=== PATIENT | female | born 1940 | race African-American/Black ===

== ENCOUNTER 2017-08-21 08:33 | Emergency (ER) | payer MEDICARE ==
--- NOTE | 2017-08-21 08:53 | PHYS DOC ---
Adult General Chief Complaint Chief Complaint: HYPOTENSION HPI HPI Patient is a 76 year old FEMALE who presents with weakness that is resolved. Patient was standing cooking when she felt weak and had to sit down. When EMS arrived her blood pressure was low. They gave her 100 mils normal saline bolus and her blood pressure improved. Patient states this happens when she stands too long. She feels back to her baseline at this time. No recent illness, no nausea or vomiting. She has had a recent fall due to arthritis and had rib fractures that patient reports is improving. No chest pain or shortness of breath, no belly pain, no nausea or vomiting. Primary care physician is Dr. Tyra Castro Review of Systems Review of Systems Constitutional: Denies fever or chills [] Eyes: Denies change in visual acuity, redness, or eye pain [] HENT: Denies nasal congestion or sore throat [] Respiratory: Denies cough or shortness of breath [] Cardiovascular: denies chest pain GI: Denies abdominal pain, nausea, vomiting, bloody stools or diarrhea [] : Denies dysuria or hematuria [] Musculoskeletal: Denies back pain or joint pain [] Integument: Denies rash or skin lesions [] Neurologic: Denies headache, focal weakness or sensory changes [] Current Medications Current Medications Current Medications Medications (Trade) Dose Ordered Sig/Beth Start Time Stop Time Status Last Admin Dose Admin Sodium Chloride 500 ml @ 500 mls/hr 1X ONCE 08/21/17 09:00 08/21/17 09:59 DC 08/21/17 08:58 500 MLS/HR Allergies Allergies Allergies Coded Allergies Type Severity Reaction Last Updated Verified No Known Drug Allergies 08/21/17 No Physical Exam Physical Exam Constitutional: Well developed, well nourished, no acute distress, non-toxic appearance. [] HENT: Normocephalic, atraumatic, bilateral external ears normal, oropharynx moist, no oral exudates, nose normal. [] Eyes: PERRLA, EOMI, conjunctiva normal, no discharge. [] Neck: Normal range of motion, no tenderness, supple, no stridor. [] Cardiovascular:Heart rate regular with regular rhythm, no murmur [] Lungs & Thorax: Bilateral breath sounds clear to auscultation, no wheeze or crackles Abdomen: Bowel sounds normal, soft, no tenderness, no masses, no pulsatile masses. [] Skin: Warm, dry, no erythema, no rash. [] Back: No tenderness, no CVA tenderness. [] Extremities: No tenderness, no cyanosis, no clubbing, ROM intact, no edema. [] Neurologic: Alert and oriented X 3, normal motor function, normal sensory function, no focal deficits noted. CN II-XII intact Psychologic: Affect normal, judgement normal, mood normal. [] Current Patient Data Vital Signs Vital Signs Date Time Temp Pulse Resp B/P (MAP) Pulse Ox O2 Delivery O2 Flow Rate FiO2 08/21/17 12:11 88 145/70 (95) 98 Room Air 08/21/17 10:32 18 08/21/17 09:30 98.4 98.4 Lab Values Laboratory Tests Test 08/21/17 08:52 08/21/17 10:14 08/21/17 10:45 White Blood Count 6.4 x10^3/uL (4.0-11.0) Red Blood Count 3.57 x10^6/uL (3.50-5.40) Hemoglobin 10.7 g/dL (12.0-15.5) L Hematocrit 32.0 % (36.0-47.0) L Mean Corpuscular Volume 90 fL (79-100) Mean Corpuscular Hemoglobin 30 pg (25-35) Mean Corpuscular Hemoglobin Concent 33 g/dL (31-37) Red Cell Distribution Width 14.2 % (11.5-14.5) Platelet Count 424 x10^3/uL (140-400) H Neutrophils (%) (Auto) 44 % (31-73) Lymphocytes (%) (Auto) 44 % (24-48) Monocytes (%) (Auto) 9 % (0-9) Eosinophils (%) (Auto) 2 % (0-3) Basophils (%) (Auto) 1 % (0-3) Neutrophils # (Auto) 2.8 x10^3uL (1.8-7.7) Lymphocytes # (Auto) 2.8 x10^3/uL (1.0-4.8) Monocytes # (Auto) 0.6 x10^3/uL (0.0-1.1) Eosinophils # (Auto) 0.1 x10^3/uL (0.0-0.7) Basophils # (Auto) 0.1 x10^3/uL (0.0-0.2) Sodium Level 140 mmol/L (136-145) Potassium Level 3.4 mmol/L (3.5-5.1) L Chloride Level 104 mmol/L (98-107) Carbon Dioxide Level 18 mmol/L (21-32) L Anion Gap 18 (6-14) H Blood Urea Nitrogen 27 mg/dL (7-20) H Creatinine 2.7 mg/dL (0.6-1.0) H Estimated GFR (Cockcroft-Gault) 17.2 BUN/Creatinine Ratio 10 (6-20) Glucose Level 82 mg/dL (70-99) Calcium Level 9.1 mg/dL (8.5-10.1) Total Bilirubin 0.2 mg/dL (0.2-1.0) Aspartate Amino Transferase (AST) 16 U/L (15-37) Alanine Aminotransferase (ALT) 12 U/L (14-59) L Alkaline Phosphatase 143 U/L (46-116) H Total Protein 7.8 g/dL (6.4-8.2) Albumin 3.4 g/dL (3.4-5.0) Albumin/Globulin Ratio 0.8 (1.0-1.7) L POC Troponin I 0.00 ng/ml (<0.08) Urine Collection Type Unknown Urine Color Yellow Urine Clarity Clear Urine pH 5.5 Urine Specific [place] <=1.005 Urine Protein Negative mg/dL (NEG-TRACE) Urine Glucose (UA) Negative mg/dL (NEG) Urine Ketones (Stick) Negative mg/dL (NEG) Urine Blood Small (NEG) Urine Nitrite Negative (NEG) Urine Bilirubin Negative (NEG) Urine Urobilinogen Dipstick 0.2 mg/dL (0.2 mg/dL) Urine Leukocyte Esterase Negative (NEG) Urine RBC 1-2 /HPF (0-2) Urine WBC 1-4 /HPF (0-4) Urine Squamous Epithelial Cells Few /LPF Urine Bacteria Few /HPF (0-FEW) Urine Mucus Slight /LPF Laboratory Tests 08/21/17 08:52 Laboratory Tests 08/21/17 08:52 EKG EKG 95 bpm, sinus, leftward axis, normal intervals, no ST elevation or depression appreciated, nonischemic T waves, interpreted by me[] Radiology/Procedures Radiology/Procedures [] Course & Med Decision Making Course & Med Decision Making Pertinent Labs and Imaging studies reviewed. (See chart for details) Ordered basic labs, orthostatics, 500 mils normal saline bolus given, EKG shows no acute abnormalities Orthostatics negative. Pt declined admission. I talked with FABRICATION AND ASSEMBLY SUPERVISOR in Dr. Bueno office, pt with known renal insufficiency, being managed by Dr. castro. They will follow with patient on Sunday, 08/27, counseled pt to check bp before resuming home bp meds, return precautions given , no further hypotension in ED. Dragon Disclaimer Dragon Disclaimer This electronic medical record was generated, in whole or in part, using a voice recognition dictation system. Departure Departure Impression: Primary Impression: Hypotension Additional Impression: Renal insufficiency Disposition: HOME, SELF-CARE Condition: STABLE Problem Qualifiers AYLEEN MELGOZA MD Aug 21, 2017 08:53
[2017-08-21] MEDS ORDERED: IV NORMAL SALINE 500ML BAG 500 ML IV ONE (09:00)
[2017-08-21 09:07] LABS: BASO # 0.1 x10^3/uL (0.0-0.2); BASO % 1 % (0-3); EOS % 2 % (0-3); HEMOGLOBIN 10.7 g/dL (12.0-15.5); LYMPH # 2.8 x10^3/uL (1.0-4.8); LYMPH % 44 % (24-48); MEAN CORPUSCULAR HEMOGLOBIN 30 pg (25-35); MEAN CORPUSCULAR HGB CONC 33 g/dL (31-37); MEAN CORPUSCULAR VOLUME 90 fL (79-100); MONO % 9 % (0-9); NEUT % 44 % (31-73); PLATELET COUNT 424 x10^3/uL (140-400); RED BLOOD COUNT 3.57 x10^6/uL (3.50-5.40); RED CELL DISTRIBUTION WIDTH 14.2 % (11.5-14.5); WHITE BLOOD COUNT 6.4 x10^3/uL (4.0-11.0)
[2017-08-21 09:18] LABS: CALCIUM 9.1 mg/dL (8.5-10.1); CREATININE 2.7 mg/dL (0.6-1.0); GFR 17.2; POTASSIUM 3.4 mmol/L (3.5-5.1)
[2017-08-21 09:23] LABS: ALBUMIN 3.4 g/dL (3.4-5.0); ALBUMIN/GLOBULIN RATIO 0.8 (1.0-1.7); TOTAL BILIRUBIN 0.2 mg/dL (0.2-1.0); TOTAL PROTEIN 7.8 g/dL (6.4-8.2)
--- NOTE | 2017-08-21 09:38 | EKG ---
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
[2017-08-21 11:12] LABS: BILIRUBIN,URINE NEGATIVE (NEG); GLUCOSE,URINE NEGATIVE (NEG); NITRITE,URINE NEGATIVE (NEG); PH,URINE 5.5; PROTEIN,URINE NEGATIVE (NEG-TRACE); UROBILINOGEN,URINE 0.2 mg/dL (0.2 mg/dL)
[2017-08-21 11:31] LABS: BACTERIA,URINE FEW /HPF (0-FEW); SQUAMOUS EPITHELIAL CELL,UR FEW /LPF
[2017-08-21 12:11] VITALS: BP 145/70
== END 2017-08-21 12:12 | disposition home or self-care (01) ==
LOC: ER 08:33
DX: I95.9 Hypotension, unspecified (principal); N28.9 Disorder of kidney and ureter, unspecified
CPT/HCPCS: 36415; 80053; 81001; 84484; 85025; 93005; 96360; 99285; J7040

== ENCOUNTER → 2019-09-22 | Day surgery (SDC) | payer OTHER ==
[~2019-09-22] MED LIST: CYCL1DRO OP; DORZ10DR7 OP; FLUT12AE IH; GEMF600T8 PO; IV RINGERS,LACTATED 1000ML 1,000 ML IV SCH; LEVO50TA PO; LIDOCAINE 2% PF 5 ML VIAL. ONE; LORA10TA3 PO; METO25TA2 PO; NIFE90TA PO; POTA10TA12 PO; PRED15SO7 PO; PROPOFOL 20 ML IV ONE; SPIR25TA5 PO; VENTOLIN HFA18 GM INH
--- NOTE | 2019-09-22 13:25 | PDOC4 ---
PROCEDURE Procedure EGD/dilate Indication: dysphagia Meds: per anesthesia Findings: E--~grade A esophagitis at 37cm. G--Small HH D--Normal to second portion. --Dilated with 48F Kelly w/o resistance. Jack. well. IMP: GERD, mild. REC: PPI daily. F/u in 2 weeks. Resume other home meds, diet as before. MELVI HNA MD Sep 22, 2019 13:25
[2019-09-22 13:58] VITALS: BP 136/65
== END ==
LOC: ENDOS 12:27
PROVIDERS: ATTEND Internal Medicine Gastroenterology
DX: R10.13 Epigastric pain (principal); K21.0 Gastro-esophageal reflux disease with esophagitis; K44.9 Diaphragmatic hernia without obstruction or gangrene; I10 Essential (primary) hypertension; E78.5 Hyperlipidemia, unspecified; E03.9 Hypothyroidism, unspecified; D64.9 Anemia, unspecified; J44.9 Chronic obstructive pulmonary disease, unspecified; Z86.010 Personal history of colon polyps; Z88.8 Allergy status to other drugs, medicaments and biological substances; Z90.49 Acquired absence of other specified parts of digestive tract
CPT/HCPCS: 43235; 43450; J2001; J2704

== ENCOUNTER → 2019-11-17 | Day surgery (SDC) | payer MEDICARE ==
[~2019-11-17] MED LIST changes: +FLUT9.9S NS; -LIDOCAINE 2% PF 5 ML VIAL. ONE; +PRED15SO48 PO; -PRED15SO7 PO; -PROPOFOL 20 ML IV ONE; +PROPOFOL 40 ML IV ONE
--- NOTE | 2019-11-17 14:03 | PDOC4 ---
PROCEDURE Procedure Colonoscopy with biopsies Indication: h/o polyps. Last 2011. Meds: per anesthesia Findings: TD normal. --Scope advanced to cecum. Mucosa normal. Post-extended left hemicolectomy with end-to-side anastomosis in sigmoid. Multiple diverticula from ascending to anastomosis. --3mm polyp, ascending, biopsied off. --4mm polyp sudeep-descending, biopsied off. Small internal hemorrhoids on retroflex. Jack. well. IMP: polyps diverticulosis S/p partial colectomy. REC: Resume home meds and diet. Await path. F/u with me in 2 weeks. MELVI HAN MD Nov 17, 2019 14:03
[2019-11-17 14:30] VITALS: BP 152/72
== END | disposition home or self-care (01) ==
LOC: ENDOS 11:30
PROVIDERS: ATTEND Internal Medicine Gastroenterology
DX: Z12.11 Encounter for screening for malignant neoplasm of colon (principal); K63.5 Polyp of colon; K63.89 Other specified diseases of intestine; K64.0 First degree hemorrhoids; K57.30 Diverticulosis of large intestine without perforation or abscess without bleeding; I10 Essential (primary) hypertension; E66.9 Obesity, unspecified; J44.9 Chronic obstructive pulmonary disease, unspecified; K21.9 Gastro-esophageal reflux disease without esophagitis; F17.210 Nicotine dependence, cigarettes, uncomplicated; E78.5 Hyperlipidemia, unspecified; D64.9 Anemia, unspecified; Z98.890 Other specified postprocedural states; Z68.37 Body mass index [BMI] 37.0-37.9, adult; Z98.0 Intestinal bypass and anastomosis status; Z86.010 Personal history of colon polyps; Z79.899 Other long term (current) drug therapy; Z88.8 Allergy status to other drugs, medicaments and biological substances; Z86.69 Personal history of other diseases of the nervous system and sense organs
CPT/HCPCS: 45380; 88305; C1757; J2704

== ENCOUNTER → 2020-04-05 | Outpatient (CLI) | payer MEDICARE ==
[2019-11-17 14:30] VITALS: BP 152/72
[~2020-04-05] MED LIST changes: +BARIUM SULFATE 340 GM SUSPENSION. PO ONE; +BARIUM SULFATE 60% 355 ML SUSP PO ONE; +BARIUM SULFATE 700 MG TABLET PO ONE; -IV RINGERS,LACTATED 1000ML 1,000 ML IV SCH; -PROPOFOL 40 ML IV ONE
--- NOTE | 2020-04-05 15:28 | RAD ---
Esophagogram: INDICATION: Difficulty swallowing. Patient reports she coughs when she eats. TECHNIQUE: Multi planar projection imaging of the cervical and thoracic esophagus was performed using a total of 2.9 minutes of fluoroscopy time and 31 image series acquired for procedural documentation. Images were acquired in the upright bilateral posterior oblique, true lateral and AP projections in addition to supine projection. Thick barium, thin barium and barium tablets were utilized. FINDINGS: The cervical portion of the esophagogram shows no laryngeal penetration or tracheal aspiration with mild pooling of thick barium in the vallecula and right piriform sinus. There are disc osteophytes at the C4-C5 and C5-C6 disc levels that result in prominence of the prevertebral soft tissues, resulting in a small cricopharyngeal bar. No esophageal diverticulum. The thoracic portion of esophagogram shows a few nonpropulsive contractions with to and fro motion of contrast material intermittently observed, as well as a small hiatal hernia. In the supine position, the thoracic esophagus is patulous without stricture distally. The barium tablet initially lodged at the cervical thoracic junction but with additional swallows assisted with thin liquids, passed into the stomach after brief pause near the gastroesophageal junction. No gastroesophageal reflux was elicited on this examination. IMPRESSION: 1. No laryngeal penetration or tracheal aspiration observed with thin liquids or thick liquids. 2. Small incipient cricopharyngeal bar and small hiatal hernia. 3. Findings of presbyesophagus. Electronically signed by: Ozzy Rachel MD (04/05/2020 3:25 PM) [id number]
== END | disposition home or self-care (01) ==
LOC: RAD 09:00
PROVIDERS: ATTEND Specialist
DX: K44.9 Diaphragmatic hernia without obstruction or gangrene (principal); K22.8 Other specified diseases of esophagus; E07.9 Disorder of thyroid, unspecified; M25.78 Osteophyte, vertebrae
CPT/HCPCS: 74220

== ENCOUNTER → 2020-04-08 | Outpatient (CLI) | payer MEDICARE ==
[2019-11-17 14:30] VITALS: BP 152/72
[~2020-04-08] MED LIST changes: -BARIUM SULFATE 340 GM SUSPENSION. PO ONE; -BARIUM SULFATE 60% 355 ML SUSP PO ONE; -BARIUM SULFATE 700 MG TABLET PO ONE
--- NOTE | 2020-04-08 14:31 | RAD ---
EXAM: ULTRASOUND-GUIDED THYROID FINE-NEEDLE ASPIRATION. HISTORY: Left thyroid nodule. Ultrasound-guided biopsy is requested. FINDINGS: The procedure along with its risks and benefits were explained to the patient. She agreed to proceed. A timeout procedure was performed. Sonographic images of the thyroid gland were obtained. The solid portion of the cystic and solid target nodule in the left lobe was adequately visualized for biopsy. The overlying skin was sterilely prepped and infiltrated with 1% lidocaine for local anesthesia. Under ultrasound guidance, 4 aspirates were obtained using 25-gauge needles. These were hand delivered to pathology who determined them adequate for diagnosis. A sterile dressing was placed. There were no immediate complications. IMPRESSION: 1. Successful ultrasound-guided fine-needle aspiration of the left thyroid nodule. Electronically signed by: Marco Rogel MD (04/08/2020 2:28 PM) [id number]
--- NOTE | 2020-04-09 17:15 | PATHOLOGY ---
Note [facility] Accession Number: [id number] TESTS RESULT FLAG UNITS REF RANGE LAB Clinician Provided Cytology Information No. of containers..01 Other (Miscellaneous) Source: LEFT THYROID NODULE DIAGNOSIS: LEFT THYROID NODULE INCONCLUSIVE. BETHESDA CATEGORY III. FOLLICULAR LESION OF UNDETERMINED SIGNIFICANCE. SPECIMEN CONSISTS OF ABUNDANT FOLLICULAR CELLS WITH SCANT COLLOID. THE DIFFERENTIAL DIAGNOSIS INCLUDES CELLULAR ADENOMATOID NODULE AND FOLLICULAR NEOPLASM. COMMENT, MODERATELY CELLULAR ASPIRATE WITH BOTH MACRO AND MICROFOLLICLES WITH HURTHLE CELL CHANGES WITH MILD ATYPIA. THE RETAIN VIAL WILL BE SENT FOR MOLECULAR TESTING AND AN ADDITIONAL REPORT WILL FOLLOW. Pathologist ICD10: 02 R89.6 Signed out by: Brenden Harrison MD, Pathologist NPI- [id number] Performed by: Lisa Lincoln, Prototype Deicer Assembler ([facility]) Gross description: 01 30ML, PINK, 2F 2AD 2HE /LCS 04/08/2020 1810 Local FLAG LEGEND: L-Low Normal,H-High Normal,LL-Alert Low,HH-Alert High <-Panic Low,>-Panic High,A-Abnormal,AA-Critical Abnormal Performed at: [employer] [facility] [address] [place] [address] Nikhil Young MD, POOJA [facility] [address] [address] Gregor Huitron MD, Specimen Comment: A courtesy copy of this report has been sent to [phone] Specimen Comment: Report sent to Performed at: [address], [place], [place] [id number] MD Nikhil Young MD Phone: [phone]
== END | disposition home or self-care (01) ==
LOC: US 12:43
PROVIDERS: ATTEND Specialist
DX: E04.1 Nontoxic single thyroid nodule (principal); R13.10 Dysphagia, unspecified
CPT/HCPCS: 76942; 88173; 88305

== ENCOUNTER 2021-03-03 19:43 | Emergency (ER) | payer MEDICARE ==
[~2021-03-03] VITALS: Ht 175.3 cm; Wt 83.1 kg
[~2021-03-03 19:43] MED LIST changes: +GEMF600T20 PO; -GEMF600T8 PO
[2021-03-03 20:18] LABS: BASO % 1 % (0-3); EOS # 0.1 x10^3/uL (0.0-0.7); EOS % 2 % (0-3); HEMATOCRIT 31.7 % (36.0-47.0); HEMOGLOBIN 11.1 g/dL (12.0-15.5); LYMPH # 1.7 x10^3/uL (1.0-4.8); LYMPH % 26 % (24-48); MEAN CORPUSCULAR HEMOGLOBIN 31 pg (25-35); MEAN CORPUSCULAR HGB CONC 35 g/dL (31-37); MEAN CORPUSCULAR VOLUME 90 fL (79-100); MONO # 0.6 x10^3/uL (0.0-1.1); MONO % 9 % (0-9); NEUT % 62 % (31-73); PLATELET COUNT 369 x10^3/uL (140-400); RED BLOOD COUNT 3.54 x10^6/uL (3.50-5.40); RED CELL DISTRIBUTION WIDTH 14.4 % (11.5-14.5); WHITE BLOOD COUNT 6.4 x10^3/uL (4.0-11.0)
[2021-03-03] MEDS ORDERED: IV NORMAL SALINE 1000ML BAG 1,000 ML IV ONE (20:30)
--- NOTE | 2021-03-03 21:15 | RAD ---
CT HEAD INDICATION: Reason: syncope / Spl. Instructions: / History: COMPARISON: None Available. Exposure: One or more of the following individualized dose reduction techniques were utilized for thi s examination: 1. Automated exposure control 2. Adjustment of the mA and/or kV according to patient size 3. Use of iterative reconstruction technique TECHNIQUE: 5 mm contiguous axial images were obtained from the skull base to the vertex in both bone and soft tissue algorithm. FINDINGS: No abnormal attenuation within the brain parenchyma. No evidence of acute intracranial hemorrhage. No extra-axial fluid collections. No mass effect or midline shift. Ventricular size is appropriate. Basal cisterns are patent. No fractures identified.Viveros-white differentiation is preserved.Globes and orbits are within normal l imits. Paranasal sinuses and mastoid air cells are clear. IMPRESSION: No acute intracranial findings. Electronically signed by: Quan Hameed MD (03/03/2021 9:12 PM) [id number]
[2021-03-03 21:23] LABS: CALCIUM 10.5 mg/dL (8.5-10.1); CREATININE 1.8 mg/dL (0.6-1.0); GFR 32.8; POTASSIUM 4.3 mmol/L (3.5-5.1)
[2021-03-03 21:25] LABS: ALBUMIN 3.8 g/dL (3.4-5.0); ALBUMIN/GLOBULIN RATIO 0.8 (1.0-1.7); MAGNESIUM 2.2 mg/dL (1.8-2.4); TOTAL BILIRUBIN 0.4 mg/dL (0.2-1.0); TOTAL PROTEIN 8.4 g/dL (6.4-8.2)
[2021-03-03 22:44] LABS: BILIRUBIN,URINE NEGATIVE (NEG); CLARITY,URINE CLEAR; COLOR,URINE YELLOW; NITRITE,URINE NEGATIVE (NEG); PROTEIN,URINE NEGATIVE (NEG-TRACE); UROBILINOGEN,URINE 0.2 mg/dL (0.2 mg/dL)
--- NOTE | 2021-03-03 22:44 | PHYS DOC ---
Past Medical History Past Medical History: Arrhythmia, High Cholesterol, Hypothyroid, Renal Disease, Other Additional Past Medical Histor: SEASON ALLERGIES, HPYLORI (EMANI PLASENCIA JOB SPECIFICATION WRITER) Past Surgical History: Cholecystectomy Additional Past Surgical Histo: COLON RESECTION (EMANI PLASENCIA JOB SPECIFICATION WRITER) Smoking Status: Current Every Day Smoker Additional Information: SMOKES 2 CIGARETTES A DAY Alcohol Use: None Drug Use: None (EMANI PLASENCIA JOB SPECIFICATION WRITER) General Adult EDM: Chief Complaint: SYNCOPE HPI: HPI: Patient is a 80 year old female with a history of arrhythmias, hypertension, kidney disease, who presents today to be evaluated for syncope episode. Patient states she was attending an outdoor graduation for the grandson, she states it was very hot, she states she passed out twice. Patient states the heat made her pass out. She states she feels better in the ED. Denies any headache, neck matthew n, chest pain, shortness of breath, nausea or vomiting. (EMANI PLASENCIA JOB SPECIFICATION WRITER) Review of Systems: Review of Systems: Constitutional: Denies fever or chills. [] Eyes: Denies change in visual acuity. [] HENT: Denies nasal congestion or sore throat. [] Respiratory: Denies cough or shortness of breath. [] Cardiovascular: Denies chest pain or edema. [] GI: Denies abdominal pain, nausea, vomiting, bloody stools or diarrhea. [] : Denies dysuria. [] Musculoskeletal: Denies back pain or joint pain. [] Integument: Denies rash. [] Neurologic: Reports syncope episode. Denies headache, focal weakness or sensory changes. [] Psychiatric: Denies depression or anxiety. [] (EMANI PLASENCIA JOB SPECIFICATION WRITER) Heart Score: C/O Chest Pain: N/A Risk Factors: Risk Factors: DM, Current or recent (<one month) smoker, HTN, HLP, family history of CAD, obesity. Risk Scores: Score 0 - 3: 2.5% MACE over next 6 weeks - Discharge Home Score 4 - 6: 20.3% MACE over next 6 weeks - Admit for Clinical Observation Score 7 - 10: 72.7% MACE over next 6 weeks - Early Invasive Strategies (EMANI PLASENCIA JOB SPECIFICATION WRITER) Current Medications: Current Medications Medications (Trade) Dose Ordered Sig/Beth Start Time Stop Time Status Last Admin Dose Admin Sodium Chloride 1,000 ml @ 1,000 mls/hr 1X ONCE 03/03/21 20:30 03/03/21 21:29 DC 03/03/21 20:38 1,000 MLS/HR (EMANI PLASENCIA JOB SPECIFICATION WRITER) Allergies: Allergies: Allergies Coded Allergies Type Severity Reaction Last Updated Verified amlodipine Allergy Intermediate swollen mouth 11/17/19 Yes esomeprazole Allergy Intermediate abd pain 11/17/19 Yes (EMANI PLASENCIA JOB SPECIFICATION WRITER) Physical Exam: PE: Constitutional: Well developed, well nourished, no acute distress, non-toxic appearance. [] HENT: Normocephalic, atraumatic, bilateral external ears normal, oropharynx moist, no oral exudates, nose normal. [] Eyes: PERRLA, EOMI, to the right eye, conjunctiva normal, no discharge. blind in the left eye Neck: Normal range of motion, no tenderness, supple, no stridor. [] Cardiovascular:Heart rate regular rhythm, no murmur [] Lungs & Thorax: Bilateral breath sounds clear to auscultation [] Abdomen: Bowel sounds normal, soft, no tenderness, no masses, no pulsatile masses. [] Skin: Warm, dry, no erythema, no rash. [] Back: No tenderness, no CVA tenderness. [] Extremities: No tenderness, no cyanosis, no clubbing, ROM intact, no edema. [] Neurologic: Alert and oriented X 3, normal motor function, normal sensory function, no focal deficits noted. Cranial nerves II through XII intact Psychologic: Affect normal, judgement normal, mood normal. [] (EMANI PLASENCIA Venessa JOB SPECIFICATION WRITER) Current Patient Data: Labs: Laboratory Tests Test 03/03/21 19:54 03/03/21 20:11 03/03/21 20:54 Glucose (Fingerstick) 118 mg/dL (70-99) H White Blood Count 6.4 x10^3/uL (4.0-11.0) Red Blood Count 3.54 x10^6/uL (3.50-5.40) Hemoglobin 11.1 g/dL (12.0-15.5) L Hematocrit 31.7 % (36.0-47.0) L Mean Corpuscular Volume 90 fL (79-100) Mean Corpuscular Hemoglobin 31 pg (25-35) Mean Corpuscular Hemoglobin Concent 35 g/dL (31-37) Red Cell Distribution Width 14.4 % (11.5-14.5) Platelet Count 369 x10^3/uL (140-400) Neutrophils (%) (Auto) 62 % (31-73) Lymphocytes (%) (Auto) 26 % (24-48) Monocytes (%) (Auto) 9 % (0-9) Eosinophils (%) (Auto) 2 % (0-3) Basophils (%) (Auto) 1 % (0-3) Neutrophils # (Auto) 4.0 x10^3/uL (1.8-7.7) Lymphocytes # (Auto) 1.7 x10^3/uL (1.0-4.8) Monocytes # (Auto) 0.6 x10^3/uL (0.0-1.1) Eosinophils # (Auto) 0.1 x10^3/uL (0.0-0.7) Basophils # (Auto) 0.0 x10^3/uL (0.0-0.2) Sodium Level 142 mmol/L (136-145) Potassium Level 4.3 mmol/L (3.5-5.1) Chloride Level 107 mmol/L (98-107) Carbon Dioxide Level 25 mmol/L (21-32) Anion Gap 10 (6-14) Blood Urea Nitrogen 36 mg/dL (7-20) H Creatinine 1.8 mg/dL (0.6-1.0) H Estimated GFR (Cockcroft-Gault) 32.8 BUN/Creatinine Ratio 20 (6-20) Glucose Level 112 mg/dL (70-99) H Calcium Level 10.5 mg/dL (8.5-10.1) H Magnesium Level 2.2 mg/dL (1.8-2.4) Total Bilirubin 0.4 mg/dL (0.2-1.0) Aspartate Amino Transferase (AST) 12 U/L (15-37) L Alanine Aminotransferase (ALT) 14 U/L (14-59) Alkaline Phosphatase 166 U/L (46-116) H Troponin I Quantitative < 0.017 ng/mL (0.000-0.055) Total Protein 8.4 g/dL (6.4-8.2) H Albumin 3.8 g/dL (3.4-5.0) Albumin/Globulin Ratio 0.8 (1.0-1.7) L Thyroid Stimulating Hormone (TSH) 3.152 uIU/mL (0.358-3.74) Laboratory Tests 03/03/21 20:11 Laboratory Tests 03/03/21 20:54 Vital Signs: Vital Signs Date Time Temp Pulse Resp B/P (MAP) Pulse Ox O2 Delivery O2 Flow Rate FiO2 03/03/21 20:17 76 142/68 (92) 98 Room Air 03/03/21 19:43 98.8 17 98.8 (EMANI PLASENCIA JOB SPECIFICATION WRITER) EKG: EK interpreted by Dr. Estrada sinus rhythm heart rate 78 no STEMI [] (EMANI PLASENCIA APRN) Radiology/Procedures: Radiology/Procedures: []PROCEDURE: CT HEAD WO CONTRAST CT HEAD INDICATION: Reason: syncope / Spl. Instructions: / History: COMPARISON: None Available. Exposure: One or more of the following individualized dose reduction techniques were utilized for this examination: 1. Automated exposure control 2. Adjust ment of the mA and/or kV according to patient size 3. Use of iterative reconstruction technique TECHNIQUE: 5 mm contiguous axial images were obtained from the skull base to the vertex in both bone and soft tissue algorithm. FINDINGS: No abnormal attenuation within the brain parenchyma. No evidence of acute intracranial hemorrhage. No extra-axial fluid collections. No mass effect or midline shift. Ventricular size is appropriate. Basal cisterns are patent. No fractures identified.Viveros-white differentiation is preserved.Globes and orbits are within normal limits. Paranasal sinuses and mastoid air cells are clear. IMPRESSION: No acute intracranial findings. Electronically signed by: Quan Hameed MD (03/03/2021 9:12 PM) [id number] DICTATED and SIGNED BY: QUAN HAMEED MD DATE: 03/03/21 [id number] (EMANI PLASENCIA JOB SPECIFICATION WRITER) Course & Med Decision Making: Course & Med Decision Making Pertinent Labs and Imaging studies reviewed. (See chart for details) This is a 80-year-old female patient presenting to the ED today to be evaluated for 2 syncope episodes during her graduation ceremony. Patient stated this was an outdoor event, it is very hot that she passed out. Patient states she feels better in the ED... CT of the head is negative. Chest x-ray is negative, CBC with a hemoglobin of 11.1 and hematocrit of 31.7, creatinine 1.8 with BUN of 3.6, patient has history of kidney disease and this is around her baseline. EKG is negative, she was given IV fluids, feeling better. She is requesting to be discharged home. Provided return precautions. Follow-up with PCP (EMANI PLASENCIA APRN) Phuong Disclaimer: Dragelaine Disclaimer: This electronic medical record was generated, in whole or in part, using a voice recognition dictation system. (EMANI PLASENCIA APRN) Departure Departure Impression: Primary Impression: Heat exhaustion Qualified Codes: T67.5XXA - Heat exhaustion, unspecified, initial encounter Additional Impressions: Syncope Qualified Codes: R55 - Syncope and collapse Chronic kidney disease Qualified Codes: N18.9 - Chronic kidney disease, unspecified Disposition: 01 HOME / SELF CARE / HOMELESS Condition: STABLE Referrals: CARA SARABIA MD (PCP) Follow-up in 1 to 2 weeks Patient Instructions: Heat Disorders-Brief, Syncope Additional Instructions: You were evaluated in the emergency room. Avoid being out in the heat in the next 24 hours. Try to hydrate yourself. Follow-up with your primary care doctor next week, come back to the ED at any point symptoms worsen Attending Signature Attending Signature I have reviewed the PA/EPIDEMIOLOGIST's note and plan of care. I was available for consu ltation as needed during the patient's visit in the emergency department. I agree with the clinical impression, plan, and disposition. (MELVI ESTRADA DO) EMANI PLASENCIA APRN Mar 03, 2021 22:44 MELVI ESTRADA DO Mar 03, 2021 23:44
[2021-03-03 22:49] LABS: BACTERIA,URINE FEW /HPF (0-FEW); RBC,URINE 0 /HPF (0-2); WBC,URINE RARE /HPF (0-4)
--- NOTE | 2021-03-03 22:56 | RAD ---
EXAM: CHEST 1 VIEW History: Syncope COMPARISON: None available. TECHNIQUE: Single portable radiograph of the chest FINDINGS: The cardiac silhouette is unremarkable. The lungs are clear bilaterally. The costophrenic sulci are clear and well demarcated. IMPRESSION: No radiographic evidence of an acute cardiopulmonary process. Electronically signed by: Quan Hameed MD (03/03/2021 10:54 PM) [id number]
[2021-03-03 22:59] VITALS: BP 152/75
== END 2021-03-03 22:59 | disposition home or self-care (01) ==
LOC: ER 19:43
DX: T67.5XXA Heat exhaustion, unspecified, initial encounter (principal); R55 Syncope and collapse; I12.9 Hypertensive chronic kidney disease with stage 1 through stage 4 chronic kidney disease, or unspecified chronic kidney disease; N18.9 Chronic kidney disease, unspecified; E78.00 Pure hypercholesterolemia, unspecified; E03.9 Hypothyroidism, unspecified; F17.210 Nicotine dependence, cigarettes, uncomplicated; Z90.49 Acquired absence of other specified parts of digestive tract; Z88.1 Allergy status to other antibiotic agents; Z88.8 Allergy status to other drugs, medicaments and biological substances; X30.XXXA Exposure to excessive natural heat, initial encounter; Y93.89 Activity, other specified; Y92.89 Other specified places as the place of occurrence of the external cause; Y99.8 Other external cause status
CPT/HCPCS: 36415; 70450; 71045; 80053; 81001; 82962; 83735; 84443; 84484; 85025; 96360; 99285; J7030

== ENCOUNTER 2021-09-16 10:44 | Inpatient (IN) | payer MEDICARE ==
[~2021-09-16] VITALS: Ht 170.2 cm; Wt 74.0 kg
--- NOTE | 2021-09-16 11:15 | PHYS DOC ---
Past Medical History Past Medical History: Arrhythmia, High Cholesterol, Hypothyroid, Renal Disease, Other Additional Past Medical Histor: SEASON ALLERGIES, HPYLORI Past Surgical History: Cholecystectomy Additional Past Surgical Histo: COLON RESECTION Smoking Status: Current Every Day Smoker Alcohol Use: None Drug Use: None General Adult EDM: Chief Complaint: WEAKNESS/GENERALIZED HPI: HPI: Patient is a 80 year old female who presents with at least 3 weeks of generalized weakness and fatigue. She fell yesterday, describes a mechanical trip and fall, when she fell backwards onto her buttocks. She denies head injury or other premonitory symptoms. She denies any acute changes today. She reports that her sister came over to see her and insisted that she seek medical care and come to the ER today. She denies focal weakness, numbness or tingling. She denies chest pain or dyspnea. She denies palpitations. She denies headache, dizziness, vertigo. She has chronically poor vision secondary to cataracts, no acute changes reported recently. She denies urinary symptoms. She denies constipation or diarrhea. She does not have much of an appetite, but she reports that she has been drinking fluids. She denies subjective urinary symptoms. She denies head injury. She denies loss of consciousness. She denies neck pain or back pain, denies headache. She has not contacted her PCP to discuss this issue. She reports that she has had greater than 2-year history of cough and subjective sensation of foreign body in her throat. She has seen core shaper top and ENTs, all as outpatient, per the patient and her sister's report. Review of Systems: Review of Systems: Constitutional: Denies fever or chills. [] Eyes: Denies change in visual acuity. [] HENT: Denies nasal congestion or sore throat. [] Respiratory: She does report occasional dyspnea with exertion, no dyspnea at rest. She reports a chronic cough, unchanged. Denies hemoptysis Cardiovascular: Denies chest pain or edema. Denies syncope. GI: Denies abdominal pain, nausea, vomiting, diarrhea or constipation. : Denies urinary symptoms. Musculoskeletal: Denies back pain or joint pain. [] Integument: Denies rash. [] Neurologic: Denies headache, focal weakness or sensory changes. He denies dizziness or vertigo. Psychiatric: Denies depression or anxiety. [] Heart Score: C/O Chest Pain: No Risk Factors: Risk Factors: DM, Current or recent (<one month) smoker, HTN, HLP, family history of CAD, obesity. Risk Scores: Score 0 - 3: 2.5% MACE over next 6 weeks - Discharge Home Score 4 - 6: 20.3% MACE over next 6 weeks - Admit for Clinical Observation Score 7 - 10: 72.7% MACE over next 6 weeks - Early Invasive Strategies Allergies: Allergies: Allergies Coded Allergies Type Severity Reaction Last Updated Verified amlodipine Allergy Intermediate swollen mouth 11/17/19 Yes esomeprazole Allergy Intermediate abd pain 11/17/19 Yes Physical Exam: PE: Constitutional: Well developed, well nourished, no acute distress, non-toxic appearance. [] HENT: Normocephalic, atraumatic, oropharynx is patent and clear, mucous membranes are moist. TMs clear bilaterally Eyes: PERRL, EOMI, no discharge. Sclera are clear and anicteric. Bilateral corneal opacities are noted, left greater than right. Neck: Normal range of motion, no tenderness, supple, no stridor. Achy midline, no JVD, no midline tenderness or step-offs Cardiovascular: Tachycardic, low 100s, regular, +2 dorsalis pedis and +2 radial pulses bilaterally. Lungs & Thorax: Bilateral breath sounds clear to auscultation [] Abdomen: Diminished soft, nondistended, nontender to palpation. Skin: Warm, dry, no erythema, no rash. No jaundice. No wounds. Back: No tenderness, no CVA tenderness. [] Extremities: No tenderness, no cyanosis, no clubbing, ROM intact, no edema. No calf tenderness. Neurologic: She is awake, alert, oriented x3. Cranial nerves II through XII grossly intact. Speech is clear and fluent. 5 out of 5 motor strength all 4 extremities. No dysmetria. No pronator drift. No limb ataxia. Psychologic: Affect normal, judgement normal, mood normal. [] EKG: EKG: EKG is interpreted at 1111 Rhythm is sinus tachycardia Rate is 108 bpm Grant is left No STEMI Radiology/Procedures: Radiology/Procedures: IMAGING REPORT Signed PATIENT: MARIA T GAUTAM ACCOUNT: [id number] : 1940 LOCATION: ER AGE: 80 SEX: F EXAM STATUS: PRE ER ORD. PHYSICIAN: GRICELDA KELLY DO REASON: weakness, fall PROCEDURE: CT HEAD WO CONTRAST CT HEAD/BRAIN WO History: Reason: weakness, fall / Spl. Instructions: / History: Comparison: March 03, 2021 Technique: Noncontrast CT imaging was performed of the head. Exposure: One or more of the following individualized dose reduction techniques were utilized for this examination: 1. Automated exposure control 2. Adjustment of the mA and/or kV according to patient size 3. Use of iterative reconstruction technique. Findings: No intracranial hemorrhage. No mass effect. No hydrocephalus. Mild brain parenchymal volume loss. Mild foci of decreased attenuation within the hemispheric white matter, most often due to chronic microvascular ischemia, unchanged. Imaged orbits are unremarkable. Minimal scattered paranasal sinus mucosal thickening. Mastoid air cells are clear. No acute calvarial fracture. Impression: 1. No acute intracranial abnormality. Electronically signed by: Matt Rodriguez DO (09/16/2021 12:02 PM) [id number] DICTATED and SIGNED BY: MATT RODRIGUEZ DO DATE: 09/16/21 [id number] IMAGING REPORT Signed PATIENT: MARIA T GAUTAM ACCOUNT: [id number] : 1940 LOCATION: ER AGE: 80 SEX: F EXAM STATUS: PRE ER ORD. PHYSICIAN: GRICELDA KELLY DO REASON: cough PROCEDURE: PORTABLE CHEST 1V XR CHEST 1V History: Reason: cough / Spl. Instructions: / History: Comparison: March 03, 2021 Findings: Mild multilevel ill-defined opacities bilaterally, right greater than left. No pleural effusion. No pneumothorax. Normal heart size. Impression: 1. Mild multifocal ill-defined opacities, can be seen with pneumonia including viral pneumonia. Electronically signed by: Matt Rodriguez DO (09/16/2021 12:07 PM) [id number] DICTATED and SIGNED BY: MATT RODRIGUEZ DO DATE: 09/16/21 [id number] IMAGING REPORT Signed PATIENT: MARIA T GAUTAM ACCOUNT: [id number] : 1940 LOCATION: ER AGE: 80 SEX: F EXAM STATUS: PRE ER ORD. PHYSICIAN: GRICELDA KELLY DO REASON: FALL YESTERDAY, LANDED ON BOTTOM PROCEDURE: SACRUM & COCCYX 3V XR SACRUM AND COCCYX 2+VIEWS History: Reason: FALL YESTERDAY, LANDED ON BOTTOM / Spl. Instructions: / History: . Pain Technique: 3 views coccyx and sacrum. Comparison: None. Findings: Normal alignment. No definite fracture. Symmetric bilateral sacroiliac joints. Lower lumbar spondylosis. Grade 1 anterolisthesis L5 on S1. Internal fixation right proximal femur. 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 Postop changes overlying the pelvis. Impression: 1. No acute osseous abnormality. Electronically signed by: Matt Rodriguez DO (09/16/2021 12:06 PM) [id number] DICTATED and SIGNED BY: MATT RODRIGUEZ DO DATE: 09/16/21 [id number] 0 Course & Med Decision Making: Course & Med Decision Making Pertinent Labs and Imaging studies reviewed. (See chart for details) Blood cultures are ordered. I did IV Rocephin and p.o. azithromycin for empiric treatment of commune acquired pneumonia. IV fluids are given. She manifests evidence of pneumonia as well as acute renal failure. I trended previous creatinines, and in 2017 she did have a creatinine up to 2.7, that her baseline is near to 1.0. I discussed all the findings, differential diagnosis and plan of care with the patient. I recommend admission to the hospital for IV antibiotics, fluids. She and her sister are both comfortable with this plan. I contacted Dr. Sarabia, who accepts her for admission. Phuong Disclaimer: Phuong Disclaimer: This electronic medical record was generated, in whole or in part, using a voice recognition dictation system. Departure Departure Impression: Primary Impression: Multifocal pneumonia Additional Impressions: Generalized weakness Acute renal failure Qualified Codes: N17.9 - Acute kidney failure, unspecified Dehydration Disposition: ADMITTED INPATIENT Admitting Physician: Lilia Sarabia Condition: STABLE Referrals: LILIA SARABIA MD (PCP) GRICELDA KELLY DO Sep 16, 2021 11:14
--- NOTE | 2021-09-16 12:05 | RAD ---
CT HEAD/BRAIN WO History: Reason: weakness, fall / Spl. Instructions: / History: Comparison: March 03, 2021 Technique: Noncontrast CT imaging was performed of the head. Exposure: One or more of the following individualized dose reduction techniques were utilized for thi s examination: 1. Automated exposure control 2. Adjustment of the mA and/or kV according to patient size 3. Use of iterative reconstruction technique. Findings: No intracranial hemorrhage. No mass effect. No hydrocephalus. Mild brain parenchymal volume loss. Mi ld foci of decreased attenuation within the hemispheric white matter, most often due to chronic micro vascular ischemia, unchanged. Imaged orbits are unremarkable. Minimal scattered paranasal sinus mucosal thickening. Mastoid air mahendra ls are clear. No acute calvarial fracture. Impression: 1. No acute intracranial abnormality. Electronically signed by: Matt Rodriguez DO (09/16/2021 12:02 PM) [id number]
--- NOTE | 2021-09-16 12:09 | RAD ---
XR CHEST 1V History: Reason: cough / Spl. Instructions: / History: Comparison: March 03, 2021 Findings: Mild multilevel ill-defined opacities bilaterally, right greater than left. No pleural effusion. No p neumothorax. Normal heart size. Impression: 1. Mild multifocal ill-defined opacities, can be seen with pneumonia including viral pneumonia. Electronically signed by: Matt Rodriguez DO (09/16/2021 12:07 PM) [id number]
--- NOTE | 2021-09-16 12:09 | RAD ---
XR SACRUM AND COCCYX 2+VIEWS History: Reason: FALL YESTERDAY, LANDED ON BOTTOM / Spl. Instructions: / History: . Pain Technique: 3 views coccyx and sacrum. Comparison: None. Findings: Normal alignment. No definite fracture. Symmetric bilateral sacroiliac joints. Lower lumbar spondylos is. Grade 1 anterolisthesis L5 on S1. Internal fixation right proximal femur. 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 Postop changes overlying the pelvis. Impression: 1. No acute osseous abnormality. Electronically signed by: Matt Rodriguez DO (09/16/2021 12:06 PM) [id number]
[2021-09-16] MEDS ORDERED: cefTRIAXone IV Push 1 GM VIAL. IVP ONE (12:30)
[2021-09-16] MEDS ORDERED: AZITHROMYCIN 250 MG TABLET. PO ONE (12:30)
[2021-09-16 12:35] LABS: BASO % 0 % (0-3); EOS % 0 % (0-3); HEMATOCRIT 31.5 % (36.0-47.0); HEMOGLOBIN 10.5 g/dL (12.0-15.5); LYMPH # 0.9 x10^3/uL (1.0-4.8); LYMPH % 11 % (24-48); MEAN CORPUSCULAR HEMOGLOBIN 30 pg (25-35); MEAN CORPUSCULAR HGB CONC 33 g/dL (31-37); MEAN CORPUSCULAR VOLUME 90 fL (79-100); MONO # 0.9 x10^3/uL (0.0-1.1); MONO % 11 % (0-9); NEUT # 6.5 x10^3/uL (1.8-7.7); NEUT % 77 % (31-73); PLATELET COUNT 517 x10^3/uL (140-400); RED CELL DISTRIBUTION WIDTH 14.4 % (11.5-14.5); WHITE BLOOD COUNT 8.4 x10^3/uL (4.0-11.0)
[2021-09-16 13:15] LABS: CALCIUM 9.9 mg/dL (8.5-10.1); GFR 18.2; POTASSIUM 4.1 mmol/L (3.5-5.1)
[2021-09-16 13:21] LABS: ALBUMIN/GLOBULIN RATIO 0.5 (1.0-1.7); MAGNESIUM 2.5 mg/dL (1.8-2.4); PHOSPHORUS 3.9 mg/dL (2.6-4.7); TOTAL BILIRUBIN 0.4 mg/dL (0.2-1.0); TOTAL PROTEIN 9.2 g/dL (6.4-8.2)
[2021-09-16] MEDS ORDERED: IV NORMAL SALINE 1000ML BAG 1,000 ML IV ONE ×2 (13:45→14:00)
[2021-09-16] MEDS ORDERED: ONDANSETRON PF 4 MG/2 ML VIAL. IVP PRN (14:00)
--- NOTE | 2021-09-16 16:35 | PDOC ---
Provider Note Date of Service: DATE: 09/16/21 TIME: 16:34 Provider Note Pt seen in ER.H&P dictated>#[id number]. Holding procardia due to renal failure and dehydration, resjme later Justifications for Admission Other Justification CARA SARABIA MD Sep 16, 2021 16:35
--- NOTE | 2021-09-16 17:26 | HP ---
DATE OF SERVICE: 09/16/2021 ADMIT DATE: 09/16/2021 PATIENT LOCATION: The patient is in Emergency Room. REASON FOR ADMISSION TO THE HOSPITAL: Weakness, acute kidney failure, possible pneumonia. HISTORY OF PRESENT ILLNESS: The patient is a 80-year-old female. She lives at home. She has history of glaucoma, hypothyroidism, hypertension and mild kidney disease, the creatinine is around 1.5. She was not feeling well for last 2-3 weeks as her cough got progressively worse and she has been weak and was brought into the hospital and her creatinine was 3, BUN 70. Chest x-ray shows infiltrate in the lungs. The patient was suspected could be a pneumonia. COVID test screen was negative. The patient had Joseph and Joseph 2 vaccinations including the booster last month. PAST SURGICAL HISTORY: Gallbladder surgery, colon surgeries. PERSONAL HISTORY: Smoker. Denies alcohol, drug abuse. FAMILY HISTORY: Hypertension. She has been weak, has been not eating much, has fallen and the patient was admitted to the hospital. ALLERGIES: THE PATIENT IS ALLERGIC TO AMLODIPINE AND ESOMEPRAZOLE. MEDICATIONS: At home, the patient is on eye drops, Restasis, 1 drop twice a day, both eyes; dorzolamide, glaucoma, 1 drop 2 times daily; prednisolone eye drops as needed; latanoprost eye drops as needed; metoprolol 25 mg daily; omeprazole 40 mg daily; Synthroid 50 mcg daily; spironolactone 25 mg daily; Procardia 90 mg daily; gemfibrozil 60 mg daily. REVIEW OF SYMPTOMS: Complains of cough, weakness, getting progressively weak for last 3 weeks. Denies any chills. Denies anybody close to her had COVID. Rest of the 14 systems were reviewed and negative. PHYSICAL EXAMINATION: GENERAL: The patient is an elderly female, not in any distress. VITAL SIGNS: Temperature 97, pulse 106, respirations 30, blood pressure 128/65 and 96 on room air. HEENT: Head is atraumatic. The patient has some glaucoma in the eyes. Oral cavity: No congestion. NECK: Supple. Thyroid not enlarged. JVD not elevated. CHEST: Symmetrical. CARDIOVASCULAR: S1, S2. LUNGS: Few crackles at the base. ABDOMEN: Soft. Scars of previous abdominal surgeries old. No mass palpable. EXTERNAL GENITALIA: No Hered[place]. RECTUM: Deferred. EXTREMITIES: No calf tenderness, no edema. NEUROLOGIC: Moving all extremities. No focal deficits noted. LABORATORY DATA: Shows a white count of 8, hemoglobin 10.5, platelets 517. Electrolytes show sodium 131, potassium 4.1, chloride 97, bicarb 18, anion gap 16, BUN 74, creatinine 3.0, glucose 119. Lactic acid 1, magnesium 2.5. LFTs normal. BNP 31. Rapid COVID test negative. DIAGNOSTIC DATA: The patient had a CT head negative. Chest x-ray shows mild multifocal, ill-defined opacities. X-ray of the sacrum and coccyx negative for any fractures. FINAL IMPRESSION: 1. Generalized weakness. 2. Possible pneumonia. 3. Acute renal insufficiency. 4. Glaucoma. 5. Hypertension. 6. Hyperlipidemia. 7. Hypothyroidism. 8. History of colon surgeries in the past. PLAN: At this time, the patient was admitted to the hospital. COVID screen was negative. PCR test is pending. Blood cultures were done, started on broad-spectrum antibiotics, Zithromax and Rocephin. Pulmonary is consulted. Renal is consulted. Ultrasound of the kidneys tomorrow. Also monitor kidney function and DVT prophylaxis and see how the patient's condition improves in the next 24-48 hours. The patient had a Joseph and Joseph 2 shots including the booster. CHANTEL DR: KEELEY/mini TID: [id number]
[2021-09-16 18:17] LABS: BILIRUBIN,URINE NEGATIVE (NEG); CLARITY,URINE CLEAR; COLOR,URINE YELLOW; NITRITE,URINE NEGATIVE (NEG); PH,URINE 5.5 (<5.0-8.0); PROTEIN,URINE 30 mg/dL (NEG-TRACE); UROBILINOGEN,URINE 0.2 mg/dL (0.2 mg/dL)
[2021-09-16 18:21] LABS: BACTERIA,URINE FEW /HPF (0-FEW); RBC,URINE OCC /HPF (0-2)
[2021-09-16 20:41] VITALS: BP 150/75
[2021-09-16] MEDS: IV NORMAL SALINE 1000ML BAG 1,000 ML IV SCH (20:41)
[2021-09-16] MEDS: DORZOLAMIDE 2% OPHTH SOLUTION 10ML BOTTLE. OU SCH (22:40)
[2021-09-16] MEDS: TIMOLOL 0.25% OPHTH SOLUTION 5ML BOTTLE. OU SCH (22:41)
[2021-09-16] MEDS: LATANOPROST 0.005% OPHTH SOLUTION 2.5ML BOTTLE. OU SCH (22:41)
[2021-09-16 23:00] VITALS: BP 165/66
[2021-09-17 03:00] VITALS: BP 143/76
[2021-09-17] MEDS: IV NORMAL SALINE 1000ML BAG 1,000 ML IV SCH ×3 (04:00→21:31)
[2021-09-17 07:00] VITALS: BP 126/67
[2021-09-17] MEDS: FLUTICASONE 50MCG/NASAL SPRAY 16GM BOTTLE. NS SCH (08:17)
[2021-09-17] MEDS: TIMOLOL 0.25% OPHTH SOLUTION 5ML BOTTLE. OU SCH ×2 (08:17→21:31)
[2021-09-17] MEDS: DORZOLAMIDE 2% OPHTH SOLUTION 10ML BOTTLE. OU SCH ×2 (08:17→21:31)
[2021-09-17] MEDS: LEVOTHYROXINE 50 MCG TABLET PO SCH (08:17)
[2021-09-17] MEDS: METOPROLOL SUCC 24HR ER 25 MG TAB.ER.24H. PO SCH (08:19)
[2021-09-17 08:36] LABS: BASO % 0 % (0-3); EOS # 0.1 x10^3/uL (0.0-0.7); EOS % 1 % (0-3); HEMATOCRIT 26.9 % (36.0-47.0); HEMOGLOBIN 8.9 g/dL (12.0-15.5); LYMPH # 0.8 x10^3/uL (1.0-4.8); LYMPH % 12 % (24-48); MEAN CORPUSCULAR HEMOGLOBIN 30 pg (25-35); MEAN CORPUSCULAR HGB CONC 33 g/dL (31-37); MEAN CORPUSCULAR VOLUME 91 fL (79-100); MONO # 0.9 x10^3/uL (0.0-1.1); MONO % 13 % (0-9); NEUT # 4.8 x10^3/uL (1.8-7.7); NEUT % 74 % (31-73); PLATELET COUNT 442 x10^3/uL (140-400); RED BLOOD COUNT 2.97 x10^6/uL (3.50-5.40); WHITE BLOOD COUNT 6.5 x10^3/uL (4.0-11.0)
--- NOTE | 2021-09-17 09:17 | PDOC ---
IM PROGRESS NOTES- Subjective Subjective Denies any pain or dyspnea. She has some congestion. Objective Vitals/I&O Vital Signs Date Time Temp Pulse Resp B/P (MAP) Pulse Ox O2 Delivery O2 Flow Rate FiO2 09/17/21 08:19 87 126/67 09/17/21 07:00 98.1 18 97 Room Air 98.1 I & O 09/16/21 09/16/21 09/17/21 15:00 23:00 07:00 Intake Total 1000 ml Balance 1000 ml Physical Exam Physical Exam General Appearance - alert and in no distress Chest - decreased breath sounds at bases Heart - S1 and S2 normal Abdomen - soft, non tender Neurological - alert and oriented Musculoskeletal - generalized weakness Extremities - no edema Labs Laboratory Tests Test 09/16/21 12:15 09/16/21 12:45 09/16/21 12:52 09/16/21 18:06 White Blood Count 8.4 x10^3/uL (4.0-11.0) Red Blood Count 3.50 x10^6/uL (3.50-5.40) Hemoglobin 10.5 g/dL (12.0-15.5) L Hematocrit 31.5 % (36.0-47.0) L Mean Corpuscular Volume 90 fL (79-100) Mean Corpuscular Hemoglobin 30 pg (25-35) Mean Corpuscular Hemoglobin Concent 33 g/dL (31-37) Red Cell Distribution Width 14.4 % (11.5-14.5) Platelet Count 517 x10^3/uL (140-400) H Neutrophils (%) (Auto) 77 % (31-73) H Lymphocytes (%) (Auto) 11 % (24-48) L Monocytes (%) (Auto) 11 % (0-9) H Eosinophils (%) (Auto) 0 % (0-3) Basophils (%) (Auto) 0 % (0-3) Neutrophils # (Auto) 6.5 x10^3/uL (1.8-7.7) Lymphocytes # (Auto) 0.9 x10^3/uL (1.0-4.8) L Monocytes # (Auto) 0.9 x10^3/uL (0.0-1.1) Eosinophils # (Auto) 0.0 x10^3/uL (0.0-0.7) Basophils # (Auto) 0.0 x10^3/uL (0.0-0.2) Sodium Level 131 mmol/L (136-145) L Potassium Level 4.1 mmol/L (3.5-5.1) Chloride Level 97 mmol/L (98-107) L Carbon Dioxide Level 18 mmol/L (21-32) L Anion Gap 16 (6-14) H Blood Urea Nitrogen 74 mg/dL (7-20) H Creatinine 3.0 mg/dL (0.6-1.0) H Estimated GFR (Cockcroft-Gault) 18.2 BUN/Creatinine Ratio 25 (6-20) H Glucose Level 119 mg/dL (70-99) H Lactic Acid Level 1.0 mmol/L (0.4-2.0) Calcium Level 9.9 mg/dL (8.5-10.1) Phosphorus Level 3.9 mg/dL (2.6-4.7) Magnesium Level 2.5 mg/dL (1.8-2.4) H Total Bilirubin 0.4 mg/dL (0.2-1.0) Aspartate Amino Transferase (AST) 25 U/L (15-37) Alanine Aminotransferase (ALT) 25 U/L (14-59) Alkaline Phosphatase 101 U/L (46-116) Creatine Kinase 67 U/L (26-192) Troponin I High Sensitivity 8 ng/L (4-50) EC-Qoo-D-Type Natriuretic Peptide 331 pg/mL (0-449) Total Protein 9.2 g/dL (6.4-8.2) H Albumin 3.0 g/dL (3.4-5.0) L Albumin/Globulin Ratio 0.5 (1.0-1.7) L SARS-CoV-2 Antigen (Rapid) Negative (NEGATIVE) Urine Collection Type Unknown Urine Color Yellow Urine Clarity Clear Urine pH 5.5 (<5.0-8.0) Urine Specific [place] 1.015 (1.000-1.030) Urine Protein 30 mg/dL (NEG-TRACE) Urine Glucose (UA) Negative mg/dL (NEG) Urine Ketones (Stick) Negative mg/dL (NEG) Urine Blood Small (NEG) Urine Nitrite Negative (NEG) Urine Bilirubin Negative (NEG) Urine Urobilinogen Dipstick 0.2 mg/dL (0.2 mg/dL) Urine Leukocyte Esterase Negative (NEG) Urine RBC Occ /HPF (0-2) Urine WBC 1-4 /HPF (0-4) Urine Squamous Epithelial Cells Mod /LPF Urine Bacteria Few /HPF (0-FEW) Test 09/17/21 08:05 White Blood Count 6.5 x10^3/uL (4.0-11.0) Red Blood Count 2.97 x10^6/uL (3.50-5.40) L Hemoglobin 8.9 g/dL (12.0-15.5) L Hematocrit 26.9 % (36.0-47.0) L Mean Corpuscular Volume 91 fL (79-100) Mean Corpuscular Hemoglobin 30 pg (25-35) Mean Corpuscular Hemoglobin Concent 33 g/dL (31-37) Red Cell Distribution Width 14.0 % (11.5-14.5) Platelet Count 442 x10^3/uL (140-400) H Neutrophils (%) (Auto) 74 % (31-73) H Lymphocytes (%) (Auto) 12 % (24-48) L Monocytes (%) (Auto) 13 % (0-9) H Eosinophils (%) (Auto) 1 % (0-3) Basophils (%) (Auto) 0 % (0-3) Neutrophils # (Auto) 4.8 x10^3/uL (1.8-7.7) Lymphocytes # (Auto) 0.8 x10^3/uL (1.0-4.8) L Monocytes # (Auto) 0.9 x10^3/uL (0.0-1.1) Eosinophils # (Auto) 0.1 x10^3/uL (0.0-0.7) Basophils # (Auto) 0.0 x10^3/uL (0.0-0.2) Laboratory Tests 09/16/21 12:15 09/17/21 08:05 Laboratory Tests 09/16/21 12:45 Meds Current Medications Medications (Trade) Dose Ordered Sig/Beth Route PRN Reason Start Time Stop Time Status Last Admin Dose Admin Ceftriaxone Sodium (Rocephin) 2 gm 1X ONCE IVP 09/16/21 12:30 09/16/21 12:32 DC 09/16/21 12:59 Azithromycin (Zithromax) 500 mg 1X ONCE PO 09/16/21 12:30 09/16/21 12:32 DC 09/16/21 12:57 Sodium Chloride 1,000 ml @ 1,000 mls/hr 1X ONCE IV 09/16/21 13:45 09/16/21 14:44 DC 09/16/21 13:45 Sodium Chloride 1,000 ml @ 100 mls/hr 1X ONCE IV 09/16/21 14:00 09/16/21 23:59 DC 09/16/21 15:10 Sodium Chloride 1,000 ml @ 100 mls/hr Q10H IV 09/16/21 16:15 09/17/21 04:00 Levothyroxine Sodium (Synthroid) 50 mcg DAILYAC PO 09/17/21 07:30 09/17/21 08:17 Metoprolol Succinate (Toprol Xl) 25 mg DAILY PO 09/17/21 09:00 09/17/21 08:19 Dorzolamide HCl (Trusopt) 1 drop BID OU 09/16/21 21:00 09/17/21 08:17 Fluticasone Propionate (Flonase) 2 spray DAILY NS 09/17/21 09:00 09/17/21 08:17 Latanoprost (Xalatan) 1 drop QHS OU 09/16/21 21:00 09/16/21 22:41 Enoxaparin Sodium (Lovenox 60mg Syringe) 60 mg Q24H SQ 09/16/21 21:00 09/16/21 22:45 Timolol Maleate (Timoptic 0.25% [facility]) 1 drop BID OU 09/16/21 21:00 09/17/21 08:17 Assessment Assessment 1. Generalized weakness. 2. Possible pneumonia. 3. Acute renal insufficiency. 4. Glaucoma. 5. Hypertension. 6. Hyperlipidemia. 7. Hypothyroidism. 8. History of colon surgeries in the past. PLAN: Pneumonia. COVID screen was negative. PCR test is pending. Blood cultures were done, started on broad-spectrum antibiotics, Zithromax and Rocephin. Pulmonary is consulted. Acute renal failure. Renal is consulted. Ultrasound of the kidneys tomorrow. Continue IV fluids. Today's labs are pending. Recheck labs in a.m. Anemia. Hemoglobin has dropped to 8.9. This is likely dilutional. Monitor. Plan Plan For more details regarding further plans, please refer to the orders. Justifications for Admission Other Justification NORM VILLEGAS MD Sep 17, 2021 09:17
[2021-09-17 11:00] VITALS: BP 142/72
[2021-09-17 11:45] LABS: CALCIUM 9.4 mg/dL (8.5-10.1); CREATININE 1.8 mg/dL (0.6-1.0); GFR 32.8
[2021-09-17] MEDS: cycloSPORINE 0.05% OPHTH DROPERETTE. OU SCH (12:41)
[2021-09-17] MEDS: AZITHROMYCIN 250 MG in IV NORMAL SALINE 250ML 250 ML IV SCH (12:41)
[2021-09-17] MEDS: cefTRIAXone IV Push 1 GM VIAL. IVP SCH (12:41)
[2021-09-17] MEDS: DEXAMETHASONE 4 MG TABLET PO SCH (12:42)
--- NOTE | 2021-09-17 13:52 | PDOC ---
PULMONARY PROGRESS NOTES DATE: 09/17/21 TIME: 13:52 Vitals Vital Signs Date Time Temp Pulse Resp B/P (MAP) Pulse Ox O2 Delivery O2 Flow Rate FiO2 09/17/21 11:00 98.0 84 18 142/72 (95) 100 Room Air 98.0 Labs Laboratory Tests Test 09/16/21 12:15 09/16/21 12:45 09/16/21 12:52 09/16/21 18:06 White Blood Count 8.4 x10^3/uL (4.0-11.0) Red Blood Count 3.50 x10^6/uL (3.50-5.40) Hemoglobin 10.5 g/dL (12.0-15.5) Hematocrit 31.5 % (36.0-47.0) Mean Corpuscular Volume 90 fL (79-100) Mean Corpuscular Hemoglobin 30 pg (25-35) Mean Corpuscular Hemoglobin Concent 33 g/dL (31-37) Red Cell Distribution Width 14.4 % (11.5-14.5) Platelet Count 517 x10^3/uL (140-400) Neutrophils (%) (Auto) 77 % (31-73) Lymphocytes (%) (Auto) 11 % (24-48) Monocytes (%) (Auto) 11 % (0-9) Eosinophils (%) (Auto) 0 % (0-3) Basophils (%) (Auto) 0 % (0-3) Neutrophils # (Auto) 6.5 x10^3/uL (1.8-7.7) Lymphocytes # (Auto) 0.9 x10^3/uL (1.0-4.8) Monocytes # (Auto) 0.9 x10^3/uL (0.0-1.1) Eosinophils # (Auto) 0.0 x10^3/uL (0.0-0.7) Basophils # (Auto) 0.0 x10^3/uL (0.0-0.2) Sodium Level 131 mmol/L (136-145) Potassium Level 4.1 mmol/L (3.5-5.1) Chloride Level 97 mmol/L (98-107) Carbon Dioxide Level 18 mmol/L (21-32) Anion Gap 16 (6-14) Blood Urea Nitrogen 74 mg/dL (7-20) Creatinine 3.0 mg/dL (0.6-1.0) Estimated GFR (Cockcroft-Gault) 18.2 BUN/Creatinine Ratio 25 (6-20) Glucose Level 119 mg/dL (70-99) Lactic Acid Level 1.0 mmol/L (0.4-2.0) Calcium Level 9.9 mg/dL (8.5-10.1) Phosphorus Level 3.9 mg/dL (2.6-4.7) Magnesium Level 2.5 mg/dL (1.8-2.4) Total Bilirubin 0.4 mg/dL (0.2-1.0) Aspartate Amino Transf (AST/SGOT) 25 U/L (15-37) Alanine Aminotransferase (ALT/SGPT) 25 U/L (14-59) Alkaline Phosphatase 101 U/L (46-116) Creatine Kinase 67 U/L (26-192) Troponin I High Sensitivity 8 ng/L (4-50) UY-Mne-T-Type Natriuretic Peptide 331 pg/mL (0-449) Total Protein 9.2 g/dL (6.4-8.2) Albumin 3.0 g/dL (3.4-5.0) Albumin/Globulin Ratio 0.5 (1.0-1.7) SARS-CoV-2 RNA (BRENT) Positive (Negative) SARS-CoV-2 Antigen (Rapid) Negative (NEGATIVE) Urine Collection Type Unknown Urine Color Yellow Urine Clarity Clear Urine pH 5.5 (<5.0-8.0) Urine Specific [place] 1.015 (1.000-1.030) Urine Protein 30 mg/dL (NEG-TRACE) Urine Glucose (UA) Negative mg/dL (NEG) Urine Ketones (Stick) Negative mg/dL (NEG) Urine Blood Small (NEG) Urine Nitrite Negative (NEG) Urine Bilirubin Negative (NEG) Urine Urobilinogen Dipstick 0.2 mg/dL (0.2 mg/dL) Urine Leukocyte Esterase Negative (NEG) Urine RBC Occ /HPF (0-2) Urine WBC 1-4 /HPF (0-4) Urine Squamous Epithelial Cells Mod /LPF Urine Bacteria Few /HPF (0-FEW) Test 09/17/21 08:05 White Blood Count 6.5 x10^3/uL (4.0-11.0) Red Blood Count 2.97 x10^6/uL (3.50-5.40) Hemoglobin 8.9 g/dL (12.0-15.5) Hematocrit 26.9 % (36.0-47.0) Mean Corpuscular Volume 91 fL (79-100) Mean Corpuscular Hemoglobin 30 pg (25-35) Mean Corpuscular Hemoglobin Concent 33 g/dL (31-37) Red Cell Distribution Width 14.0 % (11.5-14.5) Platelet Count 442 x10^3/uL (140-400) Neutrophils (%) (Auto) 74 % (31-73) Lymphocytes (%) (Auto) 12 % (24-48) Monocytes (%) (Auto) 13 % (0-9) Eosinophils (%) (Auto) 1 % (0-3) Basophils (%) (Auto) 0 % (0-3) Neutrophils # (Auto) 4.8 x10^3/uL (1.8-7.7) Lymphocytes # (Auto) 0.8 x10^3/uL (1.0-4.8) Monocytes # (Auto) 0.9 x10^3/uL (0.0-1.1) Eosinophils # (Auto) 0.1 x10^3/uL (0.0-0.7) Basophils # (Auto) 0.0 x10^3/uL (0.0-0.2) Sodium Level 139 mmol/L (136-145) Potassium Level 4.0 mmol/L (3.5-5.1) Chloride Level 107 mmol/L (98-107) Carbon Dioxide Level 16 mmol/L (21-32) Anion Gap 16 (6-14) Blood Urea Nitrogen 47 mg/dL (7-20) Creatinine 1.8 mg/dL (0.6-1.0) Estimated GFR (Cockcroft-Gault) 32.8 Glucose Level 100 mg/dL (70-99) Calcium Level 9.4 mg/dL (8.5-10.1) Laboratory Tests Test 09/16/21 18:06 09/17/21 08:05 Urine Collection Type Unknown Urine Color Yellow Urine Clarity Clear Urine pH 5.5 (<5.0-8.0) Urine Specific [place] 1.015 (1.000-1.030) Urine Protein 30 mg/dL (NEG-TRACE) Urine Glucose (UA) Negative mg/dL (NEG) Urine Ketones (Stick) Negative mg/dL (NEG) Urine Blood Small (NEG) Urine Nitrite Negative (NEG) Urine Bilirubin Negative (NEG) Urine Urobilinogen Dipstick 0.2 mg/dL (0.2 mg/dL) Urine Leukocyte Esterase Negative (NEG) Urine RBC Occ /HPF (0-2) Urine WBC 1-4 /HPF (0-4) Urine Squamous Epithelial Cells Mod /LPF Urine Bacteria Few /HPF (0-FEW) White Blood Count 6.5 x10^3/uL (4.0-11.0) Red Blood Count 2.97 x10^6/uL (3.50-5.40) Hemoglobin 8.9 g/dL (12.0-15.5) Hematocrit 26.9 % (36.0-47.0) Mean Corpuscular Volume 91 fL (79-100) Mean Corpuscular Hemoglobin 30 pg (25-35) Mean Corpuscular Hemoglobin Concent 33 g/dL (31-37) Red Cell Distribution Width 14.0 % (11.5-14.5) Platelet Count 442 x10^3/uL (140-400) Neutrophils (%) (Auto) 74 % (31-73) Lymphocytes (%) (Auto) 12 % (24-48) Monocytes (%) (Auto) 13 % (0-9) Eosinophils (%) (Auto) 1 % (0-3) Basophils (%) (Auto) 0 % (0-3) Neutrophils # (Auto) 4.8 x10^3/uL (1.8-7.7) Lymphocytes # (Auto) 0.8 x10^3/uL (1.0-4.8) Monocytes # (Auto) 0.9 x10^3/uL (0.0-1.1) Eosinophils # (Auto) 0.1 x10^3/uL (0.0-0.7) Basophils # (Auto) 0.0 x10^3/uL (0.0-0.2) Sodium Level 139 mmol/L (136-145) Potassium Level 4.0 mmol/L (3.5-5.1) Chloride Level 107 mmol/L (98-107) Carbon Dioxide Level 16 mmol/L (21-32) Anion Gap 16 (6-14) Blood Urea Nitrogen 47 mg/dL (7-20) Creatinine 1.8 mg/dL (0.6-1.0) Estimated GFR (Cockcroft-Gault) 32.8 Glucose Level 100 mg/dL (70-99) Calcium Level 9.4 mg/dL (8.5-10.1) Medications Active Scripts Medications Dose Route/Sig Max Daily Dose Days Date Category Gemfibrozil 600 Mg Tablet 600 Mg PO BID 11/17/19 Reported Flonase Allergy Relief (Fluticasone Propionate) 9.9 Ml [place].susp 2 Sprays NS DAILY 11/17/19 Reported Loratadine 10 Mg Tablet 10 Mg PO DAILY 11/17/19 Reported Dorzolamide-Timolol Eye Drops (Dorzolamide Hcl/Timolol Maleat) 10 Ml Drops 10 Ml OP BID 09/22/19 Reported Prednisolone Sod Phosphate 15 Mg/5 Ml Solution 15 Mg PO BID 09/22/19 Reported Restasis (Cyclosporine) 1 Each Droperette 1 Each OP DAILY 09/22/19 Reported Gemfibrozil 600 Mg Tablet 600 Mg PO BID 09/22/19 Reported Toprol Xl (Metoprolol Succinate) 25 Mg Tab.er.24h 25 Mg PO DAILY 09/22/19 Reported Synthroid (Levothyroxine Sodium) 50 Mcg Tablet 50 Mcg PO DAILYAC 09/22/19 Reported Spironolactone 25 Mg Tablet 25 Mg PO DAILY 09/22/19 Reported Procardia Xl (Nifedipine) 90 Mg Tab.er.24 90 Mg PO DAILY 09/22/19 Reported Klor-Con 10 (Potassium Chloride) 10 Meq Tablet.er 10 Meq PO DAILY 09/22/19 Reported Impression . Full note dictated SARS-CoV-2 positive, COVID-19 viral pneumonia, continue current support. AXEL MICHELE MD Sep 17, 2021 13:52
--- NOTE | 2021-09-17 14:20 | CONS ---
DATE OF CONSULTATION: 09/17/2021 REQUESTING PHYSICIAN: Lilia Brar MD REASON FOR CONSULTATION: Renal failure. HISTORY OF PRESENT ILLNESS: This is a 80-year-old female who was admitted with infectious pneumonitis. She is now tested positive for COVID-19. The patient is noted to have increased level of azotemia. Her creatinine is high as 1.5, now down to 1.2 with a low sodium at 131. In this setting, Nephrology evaluation requested. PAST MEDICAL HISTORY: Hypertension, hypothyroidism, glaucoma. PAST SURGICAL HISTORY: Cholecystectomy, colon surgeries. ALLERGIES: AMLODIPINE, ESOMEPRAZOLE. MEDICATIONS: Per medication list. FAMILY HISTORY: Noncontributory. SOCIAL HISTORY: The patient does not drink alcohol, does not use recreational drugs, is a smoker. Has had Joseph and Joseph COVID-19 vaccination including booster. REVIEW OF SYSTEMS: Cough, weakness. Otherwise, remainder of review of systems is unremarkable. PHYSICAL EXAMINATION: Due to COVID-19 positive status, bedside examination not pursued. LABORATORY DATA: White count 65, hemoglobin 8.9, hematocrit 26.9, platelets are 422,000. Sodium 139, potassium 4, chloride 107, CO2 of 16, BUN 47, creatinine 1.8, down from 3, GFR 32.8 up from 18.2. IMPRESSION: 1. Renal failure, acute, likely prerenal with reduced intravascular volume. Certainly may also have an underlying acute tubular necrosis. 2. Hyponatremia secondary to reduced intravascular volume. 3. COVID-19 with infectious treatment with pneumonitis. RECOMMENDATIONS: 1. Continue isotonic saline. 2. Trend labs. DEMARCO DR: Osmar TID: [id number]
[2021-09-17 15:00] VITALS: BP 127/67
--- NOTE | 2021-09-17 16:54 | RAD ---
EXAM: Renal sonogram. HISTORY: Renal failure. TECHNIQUE: Sonographic imaging of the kidneys and bladder was performed. COMPARISON: None. FINDINGS: The kidneys are normal in size. There are multiple bilateral renal cysts, the largest of wh ich is seen on the left measuring 5.4 cm. The ureteral jets are not seen. The bladder is otherwise un remarkable. The inferior vena cava is patent. IMPRESSION: 1. Multiple simple appearing bilateral renal cysts measuring up to 5.4 cm. 2. Nonvisualization of the ureteral jets during the exam. Electronically signed by: Pati Daigle MD (09/17/2021 4:52 PM) [facility]
--- NOTE | 2021-09-17 17:59 | CONS ---
DATE OF CONSULTATION: 09/17/2021 ATTENDING PHYSICIAN: Dr. Brar. REASON FOR CONSULTATION: The patient is seen in pulmonary consultation at the request of Dr. Brar for increasing shortness of breath, abnormal chest x-ray revealing multifocal ill-defined opacities. HISTORY OF PRESENT ILLNESS: The patient is a 80-year-old that smokes on and off. She has never been told that she has COPD. She presented to the Emergency Room with at least 3 weeks of generalized weakness, fatigue. She fell yesterday. She had a mechanical trip and fall. She fell backwards to her buttocks. There is no head injury. Her sister insisted the patient to seek medical attention. She was evaluated, had a chest x-ray, which revealed multifocal infiltrates. Her labs were reviewed. Microbiology is pending. Serology for SARS-CoV-2 rapid was negative, nucleic amplification test was positive. White count was normal. She had lymphopenia. The patient states that she has been short of breath for approximately 2 weeks, has a cough, mostly nonproductive. She states that she has been vaccinated with Joseph and Joseph vaccine including the booster last month. PAST MEDICAL HISTORY: Cholecystectomy, colon surgery. Otherwise, smokes. No history of COPD. SOCIAL HISTORY: She smokes. Denies alcohol intake. FAMILY HISTORY: Hypertension. ALLERGIES: AMLODIPINE, ESOMEPRAZOLE. HOME MEDICATIONS: List was reviewed. REVIEW OF SYSTEMS: CONSTITUTIONAL: No fever or chills. EYES: No change in visual acuity. HENT: No nasal congestion or sore throat. PULMONARY: As indicated above. CARDIOVASCULAR: No chest pain, no pressure. GASTROINTESTINAL: No nausea, vomiting, diarrhea. GENITOURINARY: No dysuria or frequency. MUSCULOSKELETAL: No localized muscle aches or joint pains. SKIN: No new skin rashes. NEUROLOGIC: No headaches, diplopia or blurred vision. PHYSICAL EXAMINATION: VITAL SIGNS: Stable. O2 saturation since admission on room air, has been greater than 92%. EYES: The sclerae were nonicteric. NECK: Jugular venous distention was not elevated. No lymphadenopathy. CHEST: Full expansion. LUNGS: Adequate flow with no wheezes. CARDIOVASCULAR: Regular rate and rhythm with S1, S2, no S3. ABDOMEN: Soft. EXTREMITIES: No clubbing, cyanosis or pitting edema. NEUROLOGIC: The patient was awake, alert, following commands. A detailed neuro exam was not performed. IMPRESSION: 1. Progressive dyspnea secondary to COVID-19 viral pneumonia. 2. COVID-19 viral pneumonia. 3. Abnormal x-ray secondary to above. 4. Generalized weakness. 5. Fall at home, suspect secondary to weakness, defer to PCP for workup. 6. Status post COVID-19 vaccination with Joseph and Joseph, and booster. PLAN: 1. Continue current support with azithromycin for possible bacterial pneumonia. 2. The patient was started on dexamethasone. 3. Monitor for further deterioration. I do appreciate the privilege in sharing in the patient's care. AUDELIA DR: Walker TID: [id number]
--- NOTE | 2021-09-17 17:59 | CONS ---
DATE OF CONSULTATION: 09/17/2021 REQUESTING PHYSICIAN: Dr. Pascual. REASON FOR CONSULTATION: COVID positive. HISTORY OF PRESENT ILLNESS: This is a 80-year-old -[place] female who came in with weakness, unable to eat. The patient was found to have acute kidney failure, COVID positive. The patient is vaccinated as well as she had a booster, she says and she is not requiring any oxygen. Her vitals have been stable, afebrile. White count has been normal. BUN and creatinine were high and it is improving from dehydration. Chest x-ray showed multifocal ill-defined opacity. The patient is alert, awake, comfortable. Denies any nausea, vomiting, diarrhea, chest pain, shortness of breath, abdominal pain, urinary symptoms or bowel symptoms. She says she was not eating and it is getting better. PAST MEDICAL HISTORY: She has had history of glaucoma, macular degeneration, hyperlipidemia, hypertension, COPD, gastroesophageal reflux disease, diverticulosis. She has had cholecystectomy, partial colon resection, hypothyroidism. She had thyroidectomy and anemia. SOCIAL HISTORY: Positive for smoking. Negative for alcohol use or drug use. ALLERGIES: No known drug allergies. CURRENT MEDICATIONS: Reviewed. The patient is on Rocephin, azithromycin. ROS : as per HPI, rest the systems reviewed and are neg. PHYSICAL EXAMINATION: GENERAL: Alert and oriented female, not in any distress. VITAL SIGNS: Stable, afebrile. HEENT: Pupils are round and reacting, although left eye does have a corneal opacity. No oral lesions. NECK: Supple, no JVP, no lymphadenopathy. LUNGS: Clear. HEART: S1, S2, regular. ABDOMEN: Soft, nontender, no organomegaly. EXTREMITIES: No edema or cyanosis. SKIN: Unremarkable. NEUROLOGIC: The patient is alert, awake, and appropriate. No focal neurologic deficit. LABORATORY DATA: White count is normal. BUN and creatinine as I mentioned, improving with 47 and 1.8. IMPRESSION: 1. COVID-19 positive. 2. Pulmonary infiltrate. 3. Dehydration with acute kidney injury. 4. Hypertension. 5. Hyperlipidemia. 6. Glaucoma. RECOMMENDATIONS: The patient continues to need hydration. As it is improving, antibiotics can be discontinued soon for possible discharge. PT, OT and we will continue to follow. Thank you very much, Dr. Pascual, for giving me opportunity to participate in this patient's care. SRD/XAVIER/PANTERA DR: LEE ANN/nts TID: [id number] DIANN
[2021-09-17 19:00] VITALS: BP 142/80
[2021-09-17] MEDS ORDERED: ENOXAPARIN 30 MG/0.3 ML SYRINGE. SQ SCH (21:00)
[2021-09-17] MEDS: LACTOBACILLUS RHAMNOSUS GG 1 CAPSULE. PO SCH (21:30)
[2021-09-17] MEDS: LATANOPROST 0.005% OPHTH SOLUTION 2.5ML BOTTLE. OU SCH (21:31)
[2021-09-17 23:00] VITALS: BP 154/86
[2021-09-18] VITALS (7 sets, daily range): BP systolic 144–180; BP diastolic 58–84
--- NOTE | 2021-09-18 08:07 | EKG ---
[facility] [address] [place] [address] Test Date: 2021-09-16 Test Time: 11:07:57 Pat Name: MARIA T GAUTAM Department: Room: 538 1 Gender: F Home Health Manager: : 1940 Requested By: GRICELDA KELLY Order Number: [id number] Reading MD: Sanchez Chou MD Measurements Intervals [place] Rate: 108 P: 161 [place]: 156 QRS: -25 QRSD: 96 T: 52 QT: 300 QTc: 405 Interpretive Statements BASELINE ARTIFACT SINUS RHYTHM NON-SPECIFIC ST/T CHANGES CONSIDER REPEAT EKG Electronically Signed On 09-26-2021 16:07:10 PET CARE ATTENDANT by Sanchez Chou MD
[2021-09-18] MEDS: IV NORMAL SALINE 1000ML BAG 1,000 ML IV SCH (08:15)
--- NOTE | 2021-09-18 09:05 | PDOC ---
PULMONARY PROGRESS NOTES DATE: 09/18/21 TIME: 09:04 Subjective Patient feels better, not more short of breath, on room air Vitals Vital Signs Date Time Temp Pulse Resp B/P (MAP) Pulse Ox O2 Delivery O2 Flow Rate FiO2 09/18/21 08:00 97.7 80 18 158/72 (100) 97 Room Air 97.7 ROS: No Nausea, No Chest Pain, No Abdominal Pain, No Increase Cough General: Alert Lungs: Clear Cardiovascular: S1, S2 Abdomen: Soft Neuro Exam: Alert Extremities: No Edema Skin: Warm Labs Laboratory Tests Test 09/16/21 12:15 09/16/21 12:45 09/16/21 12:52 09/16/21 18:06 White Blood Count 8.4 x10^3/uL (4.0-11.0) Red Blood Count 3.50 x10^6/uL (3.50-5.40) Hemoglobin 10.5 g/dL (12.0-15.5) Hematocrit 31.5 % (36.0-47.0) Mean Corpuscular Volume 90 fL (79-100) Mean Corpuscular Hemoglobin 30 pg (25-35) Mean Corpuscular Hemoglobin Concent 33 g/dL (31-37) Red Cell Distribution Width 14.4 % (11.5-14.5) Platelet Count 517 x10^3/uL (140-400) Neutrophils (%) (Auto) 77 % (31-73) Lymphocytes (%) (Auto) 11 % (24-48) Monocytes (%) (Auto) 11 % (0-9) Eosinophils (%) (Auto) 0 % (0-3) Basophils (%) (Auto) 0 % (0-3) Neutrophils # (Auto) 6.5 x10^3/uL (1.8-7.7) Lymphocytes # (Auto) 0.9 x10^3/uL (1.0-4.8) Monocytes # (Auto) 0.9 x10^3/uL (0.0-1.1) Eosinophils # (Auto) 0.0 x10^3/uL (0.0-0.7) Basophils # (Auto) 0.0 x10^3/uL (0.0-0.2) Sodium Level 131 mmol/L (136-145) Potassium Level 4.1 mmol/L (3.5-5.1) Chloride Level 97 mmol/L (98-107) Carbon Dioxide Level 18 mmol/L (21-32) Anion Gap 16 (6-14) Blood Urea Nitrogen 74 mg/dL (7-20) Creatinine 3.0 mg/dL (0.6-1.0) Estimated GFR (Cockcroft-Gault) 18.2 BUN/Creatinine Ratio 25 (6-20) Glucose Level 119 mg/dL (70-99) Lactic Acid Level 1.0 mmol/L (0.4-2.0) Calcium Level 9.9 mg/dL (8.5-10.1) Phosphorus Level 3.9 mg/dL (2.6-4.7) Magnesium Level 2.5 mg/dL (1.8-2.4) Total Bilirubin 0.4 mg/dL (0.2-1.0) Aspartate Amino Transf (AST/SGOT) 25 U/L (15-37) Alanine Aminotransferase (ALT/SGPT) 25 U/L (14-59) Alkaline Phosphatase 101 U/L (46-116) Creatine Kinase 67 U/L (26-192) Troponin I High Sensitivity 8 ng/L (4-50) IW-Wsg-G-Type Natriuretic Peptide 331 pg/mL (0-449) Total Protein 9.2 g/dL (6.4-8.2) Albumin 3.0 g/dL (3.4-5.0) Albumin/Globulin Ratio 0.5 (1.0-1.7) SARS-CoV-2 RNA (BRENT) Positive (Negative) SARS-CoV-2 Antigen (Rapid) Negative (NEGATIVE) Urine Collection Type Unknown Urine Color Yellow Urine Clarity Clear Urine pH 5.5 (<5.0-8.0) Urine Specific [place] 1.015 (1.000-1.030) Urine Protein 30 mg/dL (NEG-TRACE) Urine Glucose (UA) Negative mg/dL (NEG) Urine Ketones (Stick) Negative mg/dL (NEG) Urine Blood Small (NEG) Urine Nitrite Negative (NEG) Urine Bilirubin Negative (NEG) Urine Urobilinogen Dipstick 0.2 mg/dL (0.2 mg/dL) Urine Leukocyte Esterase Negative (NEG) Urine RBC Occ /HPF (0-2) Urine WBC 1-4 /HPF (0-4) Urine Squamous Epithelial Cells Mod /LPF Urine Bacteria Few /HPF (0-FEW) Test 09/17/21 08:05 09/17/21 17:14 White Blood Count 6.5 x10^3/uL (4.0-11.0) Red Blood Count 2.97 x10^6/uL (3.50-5.40) Hemoglobin 8.9 g/dL (12.0-15.5) Hematocrit 26.9 % (36.0-47.0) Mean Corpuscular Volume 91 fL (79-100) Mean Corpuscular Hemoglobin 30 pg (25-35) Mean Corpuscular Hemoglobin Concent 33 g/dL (31-37) Red Cell Distribution Width 14.0 % (11.5-14.5) Platelet Count 442 x10^3/uL (140-400) Neutrophils (%) (Auto) 74 % (31-73) Lymphocytes (%) (Auto) 12 % (24-48) Monocytes (%) (Auto) 13 % (0-9) Eosinophils (%) (Auto) 1 % (0-3) Basophils (%) (Auto) 0 % (0-3) Neutrophils # (Auto) 4.8 x10^3/uL (1.8-7.7) Lymphocytes # (Auto) 0.8 x10^3/uL (1.0-4.8) Monocytes # (Auto) 0.9 x10^3/uL (0.0-1.1) Eosinophils # (Auto) 0.1 x10^3/uL (0.0-0.7) Basophils # (Auto) 0.0 x10^3/uL (0.0-0.2) Sodium Level 139 mmol/L (136-145) Potassium Level 4.0 mmol/L (3.5-5.1) Chloride Level 107 mmol/L (98-107) Carbon Dioxide Level 16 mmol/L (21-32) Anion Gap 16 (6-14) Blood Urea Nitrogen 47 mg/dL (7-20) Creatinine 1.8 mg/dL (0.6-1.0) Estimated GFR (Cockcroft-Gault) 32.8 Glucose Level 100 mg/dL (70-99) Calcium Level 9.4 mg/dL (8.5-10.1) Glucose (Fingerstick) 131 mg/dL (70-99) Laboratory Tests Test 09/17/21 17:14 Glucose (Fingerstick) 131 mg/dL (70-99) Medications Active Scripts Medications Dose Route/Sig Max Daily Dose Days Date Category Gemfibrozil 600 Mg Tablet 600 Mg PO BID 11/17/19 Reported Flonase Allergy Relief (Fluticasone Propionate) 9.9 Ml [place].susp 2 Sprays NS DAILY 11/17/19 Reported Loratadine 10 Mg Tablet 10 Mg PO DAILY 11/17/19 Reported Dorzolamide-Timolol Eye Drops (Dorzolamide Hcl/Timolol Maleat) 10 Ml Drops 10 Ml OP BID 09/22/19 Reported Prednisolone Sod Phosphate 15 Mg/5 Ml Solution 15 Mg PO BID 09/22/19 Reported Restasis (Cyclosporine) 1 Each Droperette 1 Each OP DAILY 09/22/19 Reported Gemfibrozil 600 Mg Tablet 600 Mg PO BID 09/22/19 Reported Toprol Xl (Metoprolol Succinate) 25 Mg Tab.er.24h 25 Mg PO DAILY 09/22/19 Reported Synthroid (Levothyroxine Sodium) 50 Mcg Tablet 50 Mcg PO DAILYAC 09/22/19 Reported Spironolactone 25 Mg Tablet 25 Mg PO DAILY 09/22/19 Reported Procardia Xl (Nifedipine) 90 Mg Tab.er.24 90 Mg PO DAILY 09/22/19 Reported Klor-Con 10 (Potassium Chloride) 10 Meq Tablet.er 10 Meq PO DAILY 09/22/19 Reported Impression . IMPRESSION: 1. Progressive dyspnea secondary to COVID-19 viral pneumonia. 2. COVID-19 viral pneumonia. 3. Abnormal x-ray secondary to above. 4. Generalized weakness. 5. Fall at home, suspect secondary to weakness, defer to PCP for workup. 6. Status post COVID-19 vaccination with Joseph and Joseph, and booster. Plan . Continue current support If patient continues to do well, could perform 6-minute walk and discharge home, in the a.m. AXEL MICHELE MD Sep 18, 2021 09:05
[2021-09-18] MEDS: LEVOTHYROXINE 50 MCG TABLET PO SCH (09:06)
[2021-09-18] MEDS: DEXAMETHASONE 4 MG TABLET PO SCH (09:06)
[2021-09-18] MEDS: LACTOBACILLUS RHAMNOSUS GG 1 CAPSULE. PO SCH ×2 (09:06→22:10)
[2021-09-18] MEDS: cycloSPORINE 0.05% OPHTH DROPERETTE. OU SCH (09:06)
[2021-09-18] MEDS: DORZOLAMIDE 2% OPHTH SOLUTION 10ML BOTTLE. OU SCH ×2 (09:07→21:21)
[2021-09-18] MEDS: METOPROLOL SUCC 24HR ER 25 MG TAB.ER.24H. PO SCH (09:07)
[2021-09-18] MEDS: TIMOLOL 0.25% OPHTH SOLUTION 5ML BOTTLE. OU SCH ×2 (09:07→21:21)
[2021-09-18] MEDS: FLUTICASONE 50MCG/NASAL SPRAY 16GM BOTTLE. NS SCH (09:07)
[2021-09-18 09:42] LABS: ALBUMIN 2.5 g/dL (3.4-5.0); ALBUMIN/GLOBULIN RATIO 0.4 (1.0-1.7); CALCIUM 9.9 mg/dL (8.5-10.1); CREATININE 1.2 mg/dL (0.6-1.0); GFR 52.4; TOTAL BILIRUBIN 0.3 mg/dL (0.2-1.0)
[2021-09-18 09:45] LABS: POTASSIUM 4.2 mmol/L (3.5-5.1)
--- NOTE | 2021-09-18 10:49 | PDOC ---
PROGRESS NOTES Date of Service: DATE: 09/18/21 TIME: 10:46 Subjective Subjective feeling good ,wanting to go home Objective Objective Vital Signs Date Time Temp Pulse Resp B/P (MAP) Pulse Ox O2 Delivery O2 Flow Rate FiO2 09/18/21 09:07 80 158/72 09/18/21 08:00 97.7 18 97 Room Air 97.7 Intake and Output 09/18/21 07:00 Intake Total 3421 ml Balance 3421 ml Intake Oral 720 ml IV Total 2701 ml # Voids 4 # Bowel Movements 2 Physical Exam Abdomen: Soft Heart: Normal S1, Normal S2 Extremities: No clubbing General: Oriented X3 HEENT: Atraumatic Lungs: Clear to auscultation MUSCULOSKELETAL: No swelling Neck: No JVD Neuro: Normal speech Psych/Mental Status: Mental status NL Skin: No breakdown Diagnosis Problem List Problems Medical Problems: (1) Acute renal failure Status: Acute (2) Dehydration Status: Acute (3) Generalized weakness Status: Acute (4) Multifocal pneumonia Status: Acute Assessment Assessment 1. Generalized weakness. 2. Covid viral pneumonia. 3. Acute renal insufficiency. 4. Glaucoma. 5. Hypertension. 6. Hyperlipidemia. 7. Hypothyroidism. 8. History of colon surgeries in the past. PLAN: Viral Pneumonia. COVID break through infection kidney function normal d/c home tomorrow sono kidney simple cysts. Plan Plan of Care Problems Medical Problems: (1) Acute renal failure Status: Acute (2) Dehydration Status: Acute (3) Generalized weakness Status: Acute (4) Multifocal pneumonia Status: Acute Comment Review of Relevant I have reviewed the following items karli (where applicable) has been applied. Labs Laboratory Tests Test 09/17/21 17:14 09/18/21 08:30 Glucose (Fingerstick) 131 mg/dL (70-99) White Blood Count 10.3 x10^3/uL (4.0-11.0) Red Blood Count 3.29 x10^6/uL (3.50-5.40) Hemoglobin 10.0 g/dL (12.0-15.5) Hematocrit 30.2 % (36.0-47.0) Mean Corpuscular Volume 92 fL (79-100) Mean Corpuscular Hemoglobin 30 pg (25-35) Mean Corpuscular Hemoglobin Concent 33 g/dL (31-37) Red Cell Distribution Width 14.4 % (11.5-14.5) Platelet Count 559 x10^3/uL (140-400) Neutrophils (%) (Auto) 74 % (31-73) Lymphocytes (%) (Auto) 13 % (24-48) Monocytes (%) (Auto) 13 % (0-9) Eosinophils (%) (Auto) 0 % (0-3) Basophils (%) (Auto) 1 % (0-3) Neutrophils # (Auto) 7.6 x10^3/uL (1.8-7.7) Lymphocytes # (Auto) 1.3 x10^3/uL (1.0-4.8) Monocytes # (Auto) 1.3 x10^3/uL (0.0-1.1) Eosinophils # (Auto) 0.0 x10^3/uL (0.0-0.7) Basophils # (Auto) 0.1 x10^3/uL (0.0-0.2) Sodium Level 139 mmol/L (136-145) Potassium Level 4.2 mmol/L (3.5-5.1) Chloride Level 106 mmol/L (98-107) Carbon Dioxide Level 17 mmol/L (21-32) Anion Gap 16 (6-14) Blood Urea Nitrogen 23 mg/dL (7-20) Creatinine 1.2 mg/dL (0.6-1.0) Estimated GFR (Cockcroft-Gault) 52.4 BUN/Creatinine Ratio 19 (6-20) Glucose Level 94 mg/dL (70-99) Calcium Level 9.9 mg/dL (8.5-10.1) Total Bilirubin 0.3 mg/dL (0.2-1.0) Aspartate Amino Transf (AST/SGOT) 16 U/L (15-37) Alanine Aminotransferase (ALT/SGPT) 18 U/L (14-59) Alkaline Phosphatase 90 U/L (46-116) Total Protein 9.0 g/dL (6.4-8.2) Albumin 2.5 g/dL (3.4-5.0) Albumin/Globulin Ratio 0.4 (1.0-1.7) Microbiology 09/16/21 Blood Culture - Preliminary, Resulted NO GROWTH AFTER 1 DAY Medications Current Medications Azithromycin 250 mg/Sodium Chloride 250 ml @ 250 mls/hr Q24H IV Last administered on 09/17/21at 12:41; Start 09/17/21 at 13:00; Stop 09/20/21 at 13:59 Ceftriaxone Sodium (Rocephin) 1 gm Q24H IVP Last administered on 09/17/21at 12:41; Start 09/17/21 at 13:00 Dexamethasone (Decadron) 6 mg [id number] PO Last administered on 09/18/21at 09:06; Start 09/17/21 at 12:30 Enoxaparin Sodium (Lovenox 30mg Syringe) 30 mg QHS SQ Last administered on 09/17/21at 21:30; Start 09/17/21 at 21:00 Lactobacillus Rhamnosus (Culturelle) 1 cap BID PO Last administered on 09/18/21at 09:06; Start 09/17/21 at 21:00 Vitals/I & O Vital Sign - Last 24 Hours 09/17/21 09/17/21 09/17/21 09/17/21 11:00 15:00 19:00 20:00 Temp 98.0 98.0 96.4 98.0 98.0 96.4 Pulse 84 77 81 Resp 18 18 18 B/P (MAP) 142/72 (95) 127/67 (87) 142/80 (100) Pulse Ox 100 95 98 O2 Delivery Room Air Room Air Room Air 09/17/21 09/18/21 09/18/21 09/18/21 23:00 03:00 08:00 09:07 Temp 97.4 97.5 97.7 97.4 97.5 97.7 Pulse 78 84 80 80 Resp 18 18 18 B/P (MAP) 154/86 (108) 144/84 (104) 158/72 (100) 158/72 Pulse Ox 97 100 97 O2 Delivery Room Air Intake and Output 09/17/21 09/17/21 09/18/21 15:00 23:00 07:00 Intake Total 1350 ml 1951 ml 120 ml Balance 1350 ml 1951 ml 120 ml Justifications for Admission Other Justification CARA SARABIA MD Sep 18, 2021 10:49
[2021-09-18] MEDS: cefTRIAXone IV Push 1 GM VIAL. IVP SCH (12:14)
[2021-09-18] MEDS: AZITHROMYCIN 250 MG in IV NORMAL SALINE 250ML 250 ML IV SCH (12:14)
[2021-09-18 12:50] LABS: BASO # 0.1 x10^3/uL (0.0-0.2); BASO % 1 % (0-3); EOS % 0 % (0-3); HEMATOCRIT 29.2 % (36.0-47.0); HEMOGLOBIN 9.6 g/dL (12.0-15.5); LYMPH # 0.6 x10^3/uL (1.0-4.8); LYMPH % 8 % (24-48); MEAN CORPUSCULAR HEMOGLOBIN 30 pg (25-35); MEAN CORPUSCULAR HGB CONC 33 g/dL (31-37); MEAN CORPUSCULAR VOLUME 91 fL (79-100); MONO # 0.8 x10^3/uL (0.0-1.1); MONO % 11 % (0-9); NEUT # 5.8 x10^3/uL (1.8-7.7); NEUT % 80 % (31-73); PLATELET COUNT 595 x10^3/uL (140-400); RED BLOOD COUNT 3.21 x10^6/uL (3.50-5.40); RED CELL DISTRIBUTION WIDTH 14.2 % (11.5-14.5); WHITE BLOOD COUNT 7.3 x10^3/uL (4.0-11.0)
[2021-09-18 13:34] LABS: % BANDS 2 % (0-9); % LYMPHS 15 % (24-48); % METAS 1 % (0-0); % MONOS 8 % (0-10); % MYELOS 1 % (0-0); % SEGS 73 % (35-66)
[2021-09-18 13:35] LABS: PLT ESTIMATE INCREASED (ADEQUATE)
--- NOTE | 2021-09-18 17:42 | PDOC ---
Infectious Disease Note Subjective Subjective Pt on RA afebrile feels better Vital Sign Vital Signs Vital Signs Date Time Temp Pulse Resp B/P (MAP) Pulse Ox O2 Delivery O2 Flow Rate FiO2 09/18/21 15:52 70 166/65 (98) 09/18/21 15:00 98.3 17 98 Room Air 98.3 Physical Exam PHYSICAL EXAM GENERAL: Alert and oriented female, not in any distress. HEENT: Pupils are round and reacting, although left eye does have a corneal opacity. No oral lesions. NECK: Supple, no JVP, no lymphadenopathy. LUNGS: Clear. HEART: S1, S2, regular. ABDOMEN: Soft, nontender, no organomegaly. EXTREMITIES: No edema or cyanosis. SKIN: Unremarkable. NEUROLOGIC: The patient is alert, awake, and appropriate. No focal neurologic deficit. Labs Lab Laboratory Tests Test 09/18/21 08:30 09/18/21 11:39 09/18/21 12:20 09/18/21 17:00 Sodium Level 139 mmol/L (136-145) Potassium Level 4.2 mmol/L (3.5-5.1) Chloride Level 106 mmol/L (98-107) Carbon Dioxide Level 17 mmol/L (21-32) Anion Gap 16 (6-14) Blood Urea Nitrogen 23 mg/dL (7-20) Creatinine 1.2 mg/dL (0.6-1.0) Estimated GFR (Cockcroft-Gault) 52.4 BUN/Creatinine Ratio 19 (6-20) Glucose Level 94 mg/dL (70-99) Calcium Level 9.9 mg/dL (8.5-10.1) Total Bilirubin 0.3 mg/dL (0.2-1.0) Aspartate Amino Transf (AST/SGOT) 16 U/L (15-37) Alanine Aminotransferase (ALT/SGPT) 18 U/L (14-59) Alkaline Phosphatase 90 U/L (46-116) Total Protein 9.0 g/dL (6.4-8.2) Albumin 2.5 g/dL (3.4-5.0) Albumin/Globulin Ratio 0.4 (1.0-1.7) Glucose (Fingerstick) 139 mg/dL (70-99) 145 mg/dL (70-99) White Blood Count 7.3 x10^3/uL (4.0-11.0) Red Blood Count 3.21 x10^6/uL (3.50-5.40) Hemoglobin 9.6 g/dL (12.0-15.5) Hematocrit 29.2 % (36.0-47.0) Mean Corpuscular Volume 91 fL (79-100) Mean Corpuscular Hemoglobin 30 pg (25-35) Mean Corpuscular Hemoglobin Concent 33 g/dL (31-37) Red Cell Distribution Width 14.2 % (11.5-14.5) Platelet Count 595 x10^3/uL (140-400) Neutrophils (%) (Auto) 80 % (31-73) Lymphocytes (%) (Auto) 8 % (24-48) Monocytes (%) (Auto) 11 % (0-9) Eosinophils (%) (Auto) 0 % (0-3) Basophils (%) (Auto) 1 % (0-3) Neutrophils # (Auto) 5.8 x10^3/uL (1.8-7.7) Lymphocytes # (Auto) 0.6 x10^3/uL (1.0-4.8) Monocytes # (Auto) 0.8 x10^3/uL (0.0-1.1) Eosinophils # (Auto) 0.0 x10^3/uL (0.0-0.7) Basophils # (Auto) 0.1 x10^3/uL (0.0-0.2) Segmented Neutrophils % 73 % (35-66) Band Neutrophils % 2 % (0-9) Lymphocytes % 15 % (24-48) Monocytes % 8 % (0-10) Metamyelocytes % 1 % (0-0) Myelocytes % 1 % (0-0) Platelet Estimate Increased (ADEQUATE) Micro Microbiology 09/16/21 Blood Culture - Preliminary, Resulted NO GROWTH AFTER 2 DAYS Objective Assessment 1. COVID-19 positive. 2. Pulmonary infiltrates. 3. Dehydration with acute kidney injury. 4. Hypertension. 5. Hyperlipidemia. 6. Glaucoma. Plan Plan of Care The patient continues to need hydration. As it is improving, antibiotics can be discontinued soon for possible discharge. PT, OT and we will continue to follow. TRISTEN DIAZ MD Sep 18, 2021 17:42
[2021-09-18] MEDS ORDERED: ENOXAPARIN 40 MG/0.4 ML SYRINGE. SQ SCH (21:00)
[2021-09-18] MEDS: LATANOPROST 0.005% OPHTH SOLUTION 2.5ML BOTTLE. OU SCH (21:21)
[2021-09-19 03:00] VITALS: BP 141/65
[2021-09-19 07:00] VITALS: BP 163/70
[2021-09-19 07:58] LABS: ALBUMIN 2.6 g/dL (3.4-5.0); ALBUMIN/GLOBULIN RATIO 0.4 (1.0-1.7); CREATININE 1.3 mg/dL (0.6-1.0); GFR 47.8; POTASSIUM 4.3 mmol/L (3.5-5.1); TOTAL BILIRUBIN 0.3 mg/dL (0.2-1.0); TOTAL PROTEIN 8.7 g/dL (6.4-8.2)
--- NOTE | 2021-09-19 08:24 | PDOC ---
Infectious Disease Note Subjective: Subjective Pt on RA afebrile feels better Vital Signs: Vital Signs Vital Signs Date Time Temp Pulse Resp B/P (MAP) Pulse Ox O2 Delivery O2 Flow Rate FiO2 09/19/21 03:00 97.8 63 16 141/65 (90) 98 97.8 09/18/21 20:00 Room Air Physical Exam: PHYSICAL EXAM GENERAL: Alert and oriented female, not in any distress. HEENT: Pupils are round and reacting, although left eye does have a corneal opacity. No oral lesions. NECK: Supple, no JVP, no lymphadenopathy. LUNGS: Clear. HEART: S1, S2, regular. ABDOMEN: Soft, nontender, no organomegaly. EXTREMITIES: No edema or cyanosis. SKIN: Unremarkable. NEUROLOGIC: The patient is alert, awake, and appropriate. No focal neurologic deficit. Medications: Inpatient Meds: Medications reviewed. Labs: Lab Laboratory Tests Test 09/18/21 08:30 09/18/21 11:39 09/18/21 12:20 09/18/21 17:00 Sodium Level 139 mmol/L (136-145) Potassium Level 4.2 mmol/L (3.5-5.1) Chloride Level 106 mmol/L (98-107) Carbon Dioxide Level 17 mmol/L (21-32) Anion Gap 16 (6-14) Blood Urea Nitrogen 23 mg/dL (7-20) Creatinine 1.2 mg/dL (0.6-1.0) Estimated GFR (Cockcroft-Gault) 52.4 BUN/Creatinine Ratio 19 (6-20) Glucose Level 94 mg/dL (70-99) Calcium Level 9.9 mg/dL (8.5-10.1) Total Bilirubin 0.3 mg/dL (0.2-1.0) Aspartate Amino Transf (AST/SGOT) 16 U/L (15-37) Alanine Aminotransferase (ALT/SGPT) 18 U/L (14-59) Alkaline Phosphatase 90 U/L (46-116) Total Protein 9.0 g/dL (6.4-8.2) Albumin 2.5 g/dL (3.4-5.0) Albumin/Globulin Ratio 0.4 (1.0-1.7) Glucose (Fingerstick) 139 mg/dL (70-99) 145 mg/dL (70-99) White Blood Count 7.3 x10^3/uL (4.0-11.0) Red Blood Count 3.21 x10^6/uL (3.50-5.40) Hemoglobin 9.6 g/dL (12.0-15.5) Hematocrit 29.2 % (36.0-47.0) Mean Corpuscular Volume 91 fL (79-100) Mean Corpuscular Hemoglobin 30 pg (25-35) Mean Corpuscular Hemoglobin Concent 33 g/dL (31-37) Red Cell Distribution Width 14.2 % (11.5-14.5) Platelet Count 595 x10^3/uL (140-400) Neutrophils (%) (Auto) 80 % (31-73) Lymphocytes (%) (Auto) 8 % (24-48) Monocytes (%) (Auto) 11 % (0-9) Eosinophils (%) (Auto) 0 % (0-3) Basophils (%) (Auto) 1 % (0-3) Neutrophils # (Auto) 5.8 x10^3/uL (1.8-7.7) Lymphocytes # (Auto) 0.6 x10^3/uL (1.0-4.8) Monocytes # (Auto) 0.8 x10^3/uL (0.0-1.1) Eosinophils # (Auto) 0.0 x10^3/uL (0.0-0.7) Basophils # (Auto) 0.1 x10^3/uL (0.0-0.2) Segmented Neutrophils % 73 % (35-66) Band Neutrophils % 2 % (0-9) Lymphocytes % 15 % (24-48) Monocytes % 8 % (0-10) Metamyelocytes % 1 % (0-0) Myelocytes % 1 % (0-0) Platelet Estimate Increased (ADEQUATE) Test 09/18/21 20:58 09/19/21 04:00 09/19/21 08:06 Glucose (Fingerstick) 179 mg/dL (70-99) 91 mg/dL (70-99) Sodium Level 140 mmol/L (136-145) Potassium Level 4.3 mmol/L (3.5-5.1) Chloride Level 105 mmol/L (98-107) Carbon Dioxide Level 20 mmol/L (21-32) Anion Gap 15 (6-14) Blood Urea Nitrogen 20 mg/dL (7-20) Creatinine 1.3 mg/dL (0.6-1.0) Estimated GFR (Cockcroft-Gault) 47.8 BUN/Creatinine Ratio 15 (6-20) Glucose Level 99 mg/dL (70-99) Calcium Level 10.0 mg/dL (8.5-10.1) Total Bilirubin 0.3 mg/dL (0.2-1.0) Aspartate Amino Transf (AST/SGOT) 14 U/L (15-37) Alanine Aminotransferase (ALT/SGPT) 22 U/L (14-59) Alkaline Phosphatase 79 U/L (46-116) Total Protein 8.7 g/dL (6.4-8.2) Albumin 2.6 g/dL (3.4-5.0) Albumin/Globulin Ratio 0.4 (1.0-1.7) Objective: Assessment: 1. COVID-19 positive. 2. Pulmonary infiltrates. 3. Dehydration with acute kidney injury. 4. Hypertension. 5. Hyperlipidemia. 6. Glaucoma. Plan: Plan of Care cont supportive care on steroids PT and OT HARVEY DIAZ MD Sep 19, 2021 08:24
--- NOTE | 2021-09-19 09:27 | PDOC ---
PROGRESS NOTES Date of Service: DATE: 09/19/21 TIME: 09:26 Subjective Subjective feels good Objective Objective Vital Signs Date Time Temp Pulse Resp B/P (MAP) Pulse Ox O2 Delivery O2 Flow Rate FiO2 09/19/21 03:00 97.8 63 16 141/65 (90) 98 97.8 09/18/21 20:00 Room Air Intake and Output 09/19/21 07:00 Intake Total 1415 ml Balance 1415 ml Intake Oral 360 ml IV Total 975 ml Tube Feeding 80 ml # Voids 5 Physical Exam Abdomen: Soft Heart: Normal S1, Normal S2 Extremities: No clubbing General: Oriented X3 HEENT: Atraumatic Lungs: Clear to auscultation MUSCULOSKELETAL: No swelling Neck: No JVD Neuro: Normal speech Psych/Mental Status: Mental status NL Skin: No breakdown Diagnosis Problem List Problems Medical Problems: (1) Acute renal failure Status: Acute (2) Dehydration Status: Acute (3) Generalized weakness Status: Acute (4) Multifocal pneumonia Status: Acute Assessment Assessment 1. Generalized weakness. 2. Covid viral pneumonia. 3. Acute renal insufficiency. 4. Glaucoma. 5. Hypertension. 6. Hyperlipidemia. 7. Hypothyroidism. 8. History of colon surgeries in the past. PLAN: d/c home today with home health spoke with pts daughter Viral Pneumonia. COVID break through infection kidney function normal d/c home tomorrow sono kidney simple cysts. Plan Plan of Care Problems Medical Problems: (1) Acute renal failure Status: Acute (2) Dehydration Status: Acute (3) Generalized weakness Status: Acute (4) Multifocal pneumonia Status: Acute Comment Review of Relevant I have reviewed the following items karli (where applicable) has been applied. Labs Laboratory Tests Test 09/18/21 11:39 09/18/21 12:20 09/18/21 17:00 09/18/21 20:58 Glucose (Fingerstick) 139 mg/dL (70-99) 145 mg/dL (70-99) 179 mg/dL (70-99) White Blood Count 7.3 x10^3/uL (4.0-11.0) Red Blood Count 3.21 x10^6/uL (3.50-5.40) Hemoglobin 9.6 g/dL (12.0-15.5) Hematocrit 29.2 % (36.0-47.0) Mean Corpuscular Volume 91 fL (79-100) Mean Corpuscular Hemoglobin 30 pg (25-35) Mean Corpuscular Hemoglobin Concent 33 g/dL (31-37) Red Cell Distribution Width 14.2 % (11.5-14.5) Platelet Count 595 x10^3/uL (140-400) Neutrophils (%) (Auto) 80 % (31-73) Lymphocytes (%) (Auto) 8 % (24-48) Monocytes (%) (Auto) 11 % (0-9) Eosinophils (%) (Auto) 0 % (0-3) Basophils (%) (Auto) 1 % (0-3) Neutrophils # (Auto) 5.8 x10^3/uL (1.8-7.7) Lymphocytes # (Auto) 0.6 x10^3/uL (1.0-4.8) Monocytes # (Auto) 0.8 x10^3/uL (0.0-1.1) Eosinophils # (Auto) 0.0 x10^3/uL (0.0-0.7) Basophils # (Auto) 0.1 x10^3/uL (0.0-0.2) Segmented Neutrophils % 73 % (35-66) Band Neutrophils % 2 % (0-9) Lymphocytes % 15 % (24-48) Monocytes % 8 % (0-10) Metamyelocytes % 1 % (0-0) Myelocytes % 1 % (0-0) Platelet Estimate Increased (ADEQUATE) Test 09/19/21 04:00 09/19/21 08:06 Sodium Level 140 mmol/L (136-145) Potassium Level 4.3 mmol/L (3.5-5.1) Chloride Level 105 mmol/L (98-107) Carbon Dioxide Level 20 mmol/L (21-32) Anion Gap 15 (6-14) Blood Urea Nitrogen 20 mg/dL (7-20) Creatinine 1.3 mg/dL (0.6-1.0) Estimated GFR (Cockcroft-Gault) 47.8 BUN/Creatinine Ratio 15 (6-20) Glucose Level 99 mg/dL (70-99) Calcium Level 10.0 mg/dL (8.5-10.1) Total Bilirubin 0.3 mg/dL (0.2-1.0) Aspartate Amino Transf (AST/SGOT) 14 U/L (15-37) Alanine Aminotransferase (ALT/SGPT) 22 U/L (14-59) Alkaline Phosphatase 79 U/L (46-116) Total Protein 8.7 g/dL (6.4-8.2) Albumin 2.6 g/dL (3.4-5.0) Albumin/Globulin Ratio 0.4 (1.0-1.7) Glucose (Fingerstick) 91 mg/dL (70-99) Microbiology 09/16/21 Blood Culture - Preliminary, Resulted NO GROWTH AFTER 2 DAYS Medications Current Medications Enoxaparin Sodium (Lovenox 40mg Syringe) 40 mg QHS SQ Last administered on 09/18/21at 22:10; Start 09/18/21 at 21:00 Vitals/I & O Vital Sign - Last 24 Hours 09/18/21 09/18/21 09/18/21 09/18/21 11:00 15:00 15:52 19:00 Temp 97.8 98.3 97.7 97.8 98.3 97.7 Pulse 69 65 70 67 Resp 18 17 16 B/P (MAP) 146/82 (103) 180/79 (112) 166/65 (98) 163/72 (102) Pulse Ox 97 98 97 O2 Delivery Room Air Room Air 09/18/21 09/18/21 09/19/21 20:00 23:00 03:00 Temp 97.6 97.8 97.6 97.8 Pulse 51 63 Resp 18 16 B/P (MAP) 153/58 (89) 141/65 (90) Pulse Ox 99 98 O2 Delivery Room Air Intake and Output 09/18/21 09/18/21 09/19/21 15:00 23:00 07:00 Intake Total 360 ml 1055 ml Balance 360 ml 1055 ml Justifications for Admission Other Justification CARA SARABIA MD Sep 19, 2021 09:27
[2021-09-19] MEDS ORDERED: DEXA4TAB PO (09:31)
[2021-09-19] MEDS ORDERED: AZIT250T PO (09:31)
--- NOTE | 2021-09-19 09:33 | SNU/HH DC ---
DISCHARGE WITH HOME HEALTH DISCHARGE INFORMATION: Discharge Date: Sep 19, 2021 Final Diagnosis: Problems Medical Problems: (1) Acute renal failure Status: Acute (2) Dehydration Status: Acute (3) Generalized weakness Status: Acute (4) Multifocal pneumonia Status: Acute Condition on Discharge: Stable CODE STATUS: Code Status: Full HOME HEALTH: Face to Face: I certify this patient is under my care and that I, or a nurse practitioner or physician's tourist information assistant working with me, had a face to face encounter that meets the physician face to face encounter requirements with this patient on []. Medical Complications: Pneumonia Prison For: Assess Cardiopulm Status RN For Eval/Treatment: Yes Pt Meets Homebound Status: Poor coordination w/ amb. CERTIFICATION STATEMENT: Certification Statement: Certification Statement: Based on the above finding, I certify that this patient is confined to the home and needs intermittent fci care, physical therapy and/or speech therapy, or continues to need occupational therapy.~ This patient is under my care, and I have initiated the establishment of the plan of care.~ This patient will be followed by myself or a community physician who will periodically review the plan of care. Home Meds Active Scripts Azithromycin (ZITHROMAX) 250 Mg Tablet, 1 PKG PO UD for infection, #3 PKG Prov:CARA SARABIA MD 09/19/21 Dexamethasone (DEXAMETHASONE) 4 Mg Tablet, 4 TAB PO DAILY for pneumonia, #5 TAB Prov:CARA SARABIA MD 09/19/21 Reported Medications Gemfibrozil (GEMFIBROZIL) 600 Mg Tablet, 600 MG PO BID for na, TAB 11/17/19 Fluticasone Propionate (Flonase Allergy Relief) 9.9 Ml [place].susp, 2 SPRAYS NS DAILY for allergies, BOTTLE 11/17/19 Loratadine (LORATADINE) 10 Mg Tablet, 10 MG PO DAILY for allergies, TAB 11/17/19 Dorzolamide Hcl/Timolol Maleat (DORZOLAMIDE-TIMOLOL EYE DROPS) 10 Ml Drops, 10 ML OP BID for glaucoma, DROP 09/22/19 Cyclosporine (RESTASIS) 1 Each Droperette, 1 EACH OP DAILY for glaucoma, DROP 09/22/19 Gemfibrozil (GEMFIBROZIL) 600 Mg Tablet, 600 MG PO BID for n, TAB 12/23/19 Metoprolol Succinate (TOPROL XL) 25 Mg Tab.er.24h, 25 MG PO DAILY for FOR HYPERTENSION, #30 TAB 0 Refills 09/22/19 Levothyroxine Sodium (SYNTHROID) 50 Mcg Tablet, 50 MCG PO DAILYAC for THYROID SUPPLEMENT, #30 TAB 0 Refills 09/22/19 Nifedipine (PROCARDIA XL) 90 Mg Tab.er.24, 90 MG PO DAILY for bp, TAB.SR 09/22/19 Discontinued Reported Medications Prednisolone Sod Phosphate (PREDNISOLONE SOD PHOSPHATE) 15 Mg/5 Ml Solution, 15 MG PO BID for glaucoma, MISC 09/22/19 Spironolactone (SPIRONOLACTONE) 25 Mg Tablet, 25 MG PO DAILY for heart, TAB 09/22/19 Potassium Chloride (KLOR-CON 10) 10 Meq Tablet.er, 10 MEQ PO DAILY for heart, TAB 09/22/19 CARA SARABIA MD Sep 19, 2021 09:32
[2021-09-19] MEDS: METOPROLOL SUCC 24HR ER 25 MG TAB.ER.24H. PO SCH (09:42)
[2021-09-19] MEDS: LACTOBACILLUS RHAMNOSUS GG 1 CAPSULE. PO SCH (09:42)
[2021-09-19] MEDS: DEXAMETHASONE 4 MG TABLET PO SCH (09:42)
[2021-09-19] MEDS: LEVOTHYROXINE 50 MCG TABLET PO SCH (09:43)
[2021-09-19] MEDS: FLUTICASONE 50MCG/NASAL SPRAY 16GM BOTTLE. NS SCH (09:43)
[2021-09-19] MEDS: DORZOLAMIDE 2% OPHTH SOLUTION 10ML BOTTLE. OU SCH (09:44)
[2021-09-19] MEDS: TIMOLOL 0.25% OPHTH SOLUTION 5ML BOTTLE. OU SCH (09:44)
[2021-09-19] MEDS: cycloSPORINE 0.05% OPHTH DROPERETTE. OU SCH (09:45)
--- NOTE | 2021-09-19 10:11 | PDOC ---
PULMONARY PROGRESS NOTES DATE: 09/19/21 TIME: 10:11 Subjective Patient feels better, not more short of breath, on room air Vitals Vital Signs Date Time Temp Pulse Resp B/P (MAP) Pulse Ox O2 Delivery O2 Flow Rate FiO2 09/19/21 09:42 63 163/70 09/19/21 03:00 97.8 16 98 97.8 09/18/21 20:00 Room Air ROS: No Nausea, No Chest Pain, No Abdominal Pain, No Increase Cough General: Alert Lungs: Clear Cardiovascular: S1, S2 Abdomen: Soft Neuro Exam: Alert Extremities: No Edema Skin: Warm Labs Laboratory Tests Test 09/17/21 17:14 09/18/21 08:30 09/18/21 11:39 09/18/21 12:20 Glucose (Fingerstick) 131 mg/dL (70-99) 139 mg/dL (70-99) Sodium Level 139 mmol/L (136-145) Potassium Level 4.2 mmol/L (3.5-5.1) Chloride Level 106 mmol/L (98-107) Carbon Dioxide Level 17 mmol/L (21-32) Anion Gap 16 (6-14) Blood Urea Nitrogen 23 mg/dL (7-20) Creatinine 1.2 mg/dL (0.6-1.0) Estimated GFR (Cockcroft-Gault) 52.4 BUN/Creatinine Ratio 19 (6-20) Glucose Level 94 mg/dL (70-99) Calcium Level 9.9 mg/dL (8.5-10.1) Total Bilirubin 0.3 mg/dL (0.2-1.0) Aspartate Amino Transf (AST/SGOT) 16 U/L (15-37) Alanine Aminotransferase (ALT/SGPT) 18 U/L (14-59) Alkaline Phosphatase 90 U/L (46-116) Total Protein 9.0 g/dL (6.4-8.2) Albumin 2.5 g/dL (3.4-5.0) Albumin/Globulin Ratio 0.4 (1.0-1.7) White Blood Count 7.3 x10^3/uL (4.0-11.0) Red Blood Count 3.21 x10^6/uL (3.50-5.40) Hemoglobin 9.6 g/dL (12.0-15.5) Hematocrit 29.2 % (36.0-47.0) Mean Corpuscular Volume 91 fL (79-100) Mean Corpuscular Hemoglobin 30 pg (25-35) Mean Corpuscular Hemoglobin Concent 33 g/dL (31-37) Red Cell Distribution Width 14.2 % (11.5-14.5) Platelet Count 595 x10^3/uL (140-400) Neutrophils (%) (Auto) 80 % (31-73) Lymphocytes (%) (Auto) 8 % (24-48) Monocytes (%) (Auto) 11 % (0-9) Eosinophils (%) (Auto) 0 % (0-3) Basophils (%) (Auto) 1 % (0-3) Neutrophils # (Auto) 5.8 x10^3/uL (1.8-7.7) Lymphocytes # (Auto) 0.6 x10^3/uL (1.0-4.8) Monocytes # (Auto) 0.8 x10^3/uL (0.0-1.1) Eosinophils # (Auto) 0.0 x10^3/uL (0.0-0.7) Basophils # (Auto) 0.1 x10^3/uL (0.0-0.2) Segmented Neutrophils % 73 % (35-66) Band Neutrophils % 2 % (0-9) Lymphocytes % 15 % (24-48) Monocytes % 8 % (0-10) Metamyelocytes % 1 % (0-0) Myelocytes % 1 % (0-0) Platelet Estimate Increased (ADEQUATE) Test 09/18/21 17:00 09/18/21 20:58 09/19/21 04:00 09/19/21 08:06 Glucose (Fingerstick) 145 mg/dL (70-99) 179 mg/dL (70-99) 91 mg/dL (70-99) Sodium Level 140 mmol/L (136-145) Potassium Level 4.3 mmol/L (3.5-5.1) Chloride Level 105 mmol/L (98-107) Carbon Dioxide Level 20 mmol/L (21-32) Anion Gap 15 (6-14) Blood Urea Nitrogen 20 mg/dL (7-20) Creatinine 1.3 mg/dL (0.6-1.0) Estimated GFR (Cockcroft-Gault) 47.8 BUN/Creatinine Ratio 15 (6-20) Glucose Level 99 mg/dL (70-99) Calcium Level 10.0 mg/dL (8.5-10.1) Total Bilirubin 0.3 mg/dL (0.2-1.0) Aspartate Amino Transf (AST/SGOT) 14 U/L (15-37) Alanine Aminotransferase (ALT/SGPT) 22 U/L (14-59) Alkaline Phosphatase 79 U/L (46-116) Total Protein 8.7 g/dL (6.4-8.2) Albumin 2.6 g/dL (3.4-5.0) Albumin/Globulin Ratio 0.4 (1.0-1.7) Laboratory Tests Test 09/18/21 11:39 09/18/21 12:20 09/18/21 17:00 09/18/21 20:58 Glucose (Fingerstick) 139 mg/dL (70-99) 145 mg/dL (70-99) 179 mg/dL (70-99) White Blood Count 7.3 x10^3/uL (4.0-11.0) Red Blood Count 3.21 x10^6/uL (3.50-5.40) Hemoglobin 9.6 g/dL (12.0-15.5) Hematocrit 29.2 % (36.0-47.0) Mean Corpuscular Volume 91 fL (79-100) Mean Corpuscular Hemoglobin 30 pg (25-35) Mean Corpuscular Hemoglobin Concent 33 g/dL (31-37) Red Cell Distribution Width 14.2 % (11.5-14.5) Platelet Count 595 x10^3/uL (140-400) Neutrophils (%) (Auto) 80 % (31-73) Lymphocytes (%) (Auto) 8 % (24-48) Monocytes (%) (Auto) 11 % (0-9) Eosinophils (%) (Auto) 0 % (0-3) Basophils (%) (Auto) 1 % (0-3) Neutrophils # (Auto) 5.8 x10^3/uL (1.8-7.7) Lymphocytes # (Auto) 0.6 x10^3/uL (1.0-4.8) Monocytes # (Auto) 0.8 x10^3/uL (0.0-1.1) Eosinophils # (Auto) 0.0 x10^3/uL (0.0-0.7) Basophils # (Auto) 0.1 x10^3/uL (0.0-0.2) Segmented Neutrophils % 73 % (35-66) Band Neutrophils % 2 % (0-9) Lymphocytes % 15 % (24-48) Monocytes % 8 % (0-10) Metamyelocytes % 1 % (0-0) Myelocytes % 1 % (0-0) Platelet Estimate Increased (ADEQUATE) Test 09/19/21 04:00 09/19/21 08:06 Sodium Level 140 mmol/L (136-145) Potassium Level 4.3 mmol/L (3.5-5.1) Chloride Level 105 mmol/L (98-107) Carbon Dioxide Level 20 mmol/L (21-32) Anion Gap 15 (6-14) Blood Urea Nitrogen 20 mg/dL (7-20) Creatinine 1.3 mg/dL (0.6-1.0) Estimated GFR (Cockcroft-Gault) 47.8 BUN/Creatinine Ratio 15 (6-20) Glucose Level 99 mg/dL (70-99) Calcium Level 10.0 mg/dL (8.5-10.1) Total Bilirubin 0.3 mg/dL (0.2-1.0) Aspartate Amino Transf (AST/SGOT) 14 U/L (15-37) Alanine Aminotransferase (ALT/SGPT) 22 U/L (14-59) Alkaline Phosphatase 79 U/L (46-116) Total Protein 8.7 g/dL (6.4-8.2) Albumin 2.6 g/dL (3.4-5.0) Albumin/Globulin Ratio 0.4 (1.0-1.7) Glucose (Fingerstick) 91 mg/dL (70-99) Medications Active Scripts Medications Dose Route/Sig Max Daily Dose Days Date Category Gemfibrozil 600 Mg Tablet 600 Mg PO BID 11/17/19 Reported Flonase Allergy Relief (Fluticasone Propionate) 9.9 Ml [place].susp 2 Sprays NS DAILY 11/17/19 Reported Loratadine 10 Mg Tablet 10 Mg PO DAILY 11/17/19 Reported Dorzolamide-Timolol Eye Drops (Dorzolamide Hcl/Timolol Maleat) 10 Ml Drops 10 Ml OP BID 09/22/19 Reported Prednisolone Sod Phosphate 15 Mg/5 Ml Solution 15 Mg PO BID 09/22/19 Reported Restasis (Cyclosporine) 1 Each Droperette 1 Each OP DAILY 09/22/19 Reported Gemfibrozil 600 Mg Tablet 600 Mg PO BID 09/22/19 Reported Toprol Xl (Metoprolol Succinate) 25 Mg Tab.er.24h 25 Mg PO DAILY 09/22/19 Reported Synthroid (Levothyroxine Sodium) 50 Mcg Tablet 50 Mcg PO DAILYAC 09/22/19 Reported Spironolactone 25 Mg Tablet 25 Mg PO DAILY 09/22/19 Reported Procardia Xl (Nifedipine) 90 Mg Tab.er.24 90 Mg PO DAILY 09/22/19 Reported Klor-Con 10 (Potassium Chloride) 10 Meq Tablet.er 10 Meq PO DAILY 09/22/19 Reported Impression . IMPRESSION: 1. Progressive dyspnea secondary to COVID-19 viral pneumonia. 2. COVID-19 viral pneumonia. 3. Abnormal x-ray secondary to above. 4. Generalized weakness. 5. Fall at home, suspect secondary to weakness, defer to PCP for workup. 6. Status post COVID-19 vaccination with Joseph and Joseph, and booster. Plan . Continue current support If patient continues to do well, could perform 6-minute walk and discharge home, in the a.rocky. AXEL MICHELE MD Sep 19, 2021 10:11
[2021-09-19 11:00] VITALS: BP 145/68
--- NOTE | 2021-09-19 11:51 | PDOC ---
Renal-Progress Notes Subjective Notes Notes NO NEW COMPLAINTS History of Present Illness Hx of present illness STABLE Vitals Vitals Vital Signs Date Time Temp Pulse Resp B/P (MAP) Pulse Ox O2 Delivery O2 Flow Rate FiO2 09/19/21 09:42 63 163/70 09/19/21 07:00 98.0 16 97 Room Air 98.0 Weight Weight [ ] I.O. Intake and Output Intake and Output 09/19/21 07:00 Intake Total 1415 ml Balance 1415 ml Intake Oral 360 ml IV Total 975 ml Tube Feeding 80 ml # Voids 5 Labs Labs Laboratory Tests Test 09/18/21 12:20 09/18/21 17:00 09/18/21 20:58 09/19/21 04:00 White Blood Count 7.3 x10^3/uL (4.0-11.0) Red Blood Count 3.21 x10^6/uL (3.50-5.40) Hemoglobin 9.6 g/dL (12.0-15.5) Hematocrit 29.2 % (36.0-47.0) Mean Corpuscular Volume 91 fL (79-100) Mean Corpuscular Hemoglobin 30 pg (25-35) Mean Corpuscular Hemoglobin Concent 33 g/dL (31-37) Red Cell Distribution Width 14.2 % (11.5-14.5) Platelet Count 595 x10^3/uL (140-400) Neutrophils (%) (Auto) 80 % (31-73) Lymphocytes (%) (Auto) 8 % (24-48) Monocytes (%) (Auto) 11 % (0-9) Eosinophils (%) (Auto) 0 % (0-3) Basophils (%) (Auto) 1 % (0-3) Neutrophils # (Auto) 5.8 x10^3/uL (1.8-7.7) Lymphocytes # (Auto) 0.6 x10^3/uL (1.0-4.8) Monocytes # (Auto) 0.8 x10^3/uL (0.0-1.1) Eosinophils # (Auto) 0.0 x10^3/uL (0.0-0.7) Basophils # (Auto) 0.1 x10^3/uL (0.0-0.2) Segmented Neutrophils % 73 % (35-66) Band Neutrophils % 2 % (0-9) Lymphocytes % 15 % (24-48) Monocytes % 8 % (0-10) Metamyelocytes % 1 % (0-0) Myelocytes % 1 % (0-0) Platelet Estimate Increased (ADEQUATE) Glucose (Fingerstick) 145 mg/dL (70-99) 179 mg/dL (70-99) Sodium Level 140 mmol/L (136-145) Potassium Level 4.3 mmol/L (3.5-5.1) Chloride Level 105 mmol/L (98-107) Carbon Dioxide Level 20 mmol/L (21-32) Anion Gap 15 (6-14) Blood Urea Nitrogen 20 mg/dL (7-20) Creatinine 1.3 mg/dL (0.6-1.0) Estimated GFR (Cockcroft-Gault) 47.8 BUN/Creatinine Ratio 15 (6-20) Glucose Level 99 mg/dL (70-99) Calcium Level 10.0 mg/dL (8.5-10.1) Total Bilirubin 0.3 mg/dL (0.2-1.0) Aspartate Amino Transf (AST/SGOT) 14 U/L (15-37) Alanine Aminotransferase (ALT/SGPT) 22 U/L (14-59) Alkaline Phosphatase 79 U/L (46-116) Total Protein 8.7 g/dL (6.4-8.2) Albumin 2.6 g/dL (3.4-5.0) Albumin/Globulin Ratio 0.4 (1.0-1.7) Test 09/19/21 08:06 09/19/21 11:32 Glucose (Fingerstick) 91 mg/dL (70-99) 101 mg/dL (70-99) Micro Micro Microbiology 09/16/21 Blood Culture - Preliminary, Resulted NO GROWTH AFTER 2 DAYS Review of Systems Constitutional: yes: alert Ears/Nose/Throat: Yes: no symptom reported Eyes: Yes: no symptom reported Pulmonary: Yes dyspnea Cardiovascular: Yes no symptom reported Gastrointestional: Yes: no symptom reported Genitourinary: Yes: no symptom reported Musculoskeletal: Yes: muscle stiffness Skin: Yes no symptom reported Psychiatric/Neurological: Yes: no symptom reported Endocrine: Yes: no symptom reported Physical Exam General Appearance: no apparent distress Skin: warm Respiratory: decreased breath sounds Heart: S1S2 Abdomen: soft, bowel sounds present Genitourinary: bladder flat Extremities: pulses present Neurology: alert Assessment Assessment IMP DYSPNEA COVID 19 PNEUMONIA BILATERAL SIMPLE RENAL CYSTS ARELY WITH CR OF 3.0 TO 1.3 DECONDITIONING PLAN LABS IN AM ENC PO IVF'S IF RENAL FX GETS WORSE WILL FOLLOW GILMER SIMS MD Sep 19, 2021 11:51
--- NOTE | 2021-09-19 12:30 | NUR ---
Patient was walked in the room for about 4 minutes, and patients oxygen was measured and it was at 94%. Patient oxygen sat did not drop.
--- NOTE | 2021-09-19 14:48 | NUR ---
Discharge Note: Patient was discharged home with home health services. Patients IV was discontinued without any complications per SHIELA. Patient and family agreeable with discharge plans. Patient was given discharge summary/instructions follow-ups, and educational material. Patients new prescriptions were sent to patients preferred pharmacy. Patient was taken down to the main entrance via wheelchair with all personal belongings, accompanied by SHIELA Virk, where her daughter was waiting for her to take her home.
--- NOTE | 2021-09-24 11:55 | PDOC ---
Provider Note Date of Service: DATE: 09/24/21 TIME: 11:54 Provider Note Discharge summary dictated.#[id number]. Justifications for Admission Other Justification CARA SARABIA MD Sep 24, 2021 11:55
--- NOTE | 2021-09-24 12:44 | DS ---
DATE OF DISCHARGE: 09/19/2021 REASON FOR ADMISSION TO THE HOSPITAL: 1. COVID infection. 2. Acute renal failure. 3. Generalized weakness. CONSULTATIONS: Dr. Mercado, Dr. Pollack, Infectious Disease and Pulmonology and Dr. Linares Nephrology. HOSPITAL COURSE: The patient is a 80-year-old female. The patient had two doses of Joseph and Joseph and then she was having cough for the last 2 weeks, got progressively worse. She came to the Emergency Room and she was in acute renal failure. BUN 70, creatinine 3.0. Initially, COVID test was negative, but RNA was positive. The patient was seen by Infectious Disease as well as Pulmonology and chest x-ray shows multifocal ill-defined opacities. The patient's ultrasound of the kidneys negative for hydronephrosis and the patient did improve over time with IV fluids. Her kidney function is back to normal and she was feeling better and she was discharged home. FINAL DIAGNOSES: 1. COVID infection. 2. Acute kidney failure, improved with hydration. 3. The patient was discharged home and follow up in the office in [address]: Camila TID: [id number]
== END 2021-09-19 15:04 | disposition home health service (06) | DRG 177 ==
LOC: ER 10:44 → ED HOLD 13:45 → 5 NORTH 15:11
PROVIDERS: ADMIT Internal Medicine; ATTEND Internal Medicine
DX: U07.1 COVID-19 (principal); J12.82 Pneumonia due to coronavirus disease 2019; E87.1 Hypo-osmolality and hyponatremia; J44.0 Chronic obstructive pulmonary disease with (acute) lower respiratory infection; N17.9 Acute kidney failure, unspecified; D72.810 Lymphocytopenia; E78.00 Pure hypercholesterolemia, unspecified; E78.5 Hyperlipidemia, unspecified; E86.0 Dehydration; E89.0 Postprocedural hypothyroidism; F17.200 Nicotine dependence, unspecified, uncomplicated; H40.9 Unspecified glaucoma; I10 Essential (primary) hypertension; N28.1 Cyst of kidney, acquired; W01.0XXA Fall on same level from slipping, tripping and stumbling without subsequent striking against object, initial encounter; Z82.49 Family history of ischemic heart disease and other diseases of the circulatory system; Z90.49 Acquired absence of other specified parts of digestive tract; K21.9 Gastro-esophageal reflux disease without esophagitis; K57.90 Diverticulosis of intestine, part unspecified, without perforation or abscess without bleeding; Z88.8 Allergy status to other drugs, medicaments and biological substances; Y93.89 Activity, other specified; Y92.89 Other specified places as the place of occurrence of the external cause; Y99.8 Other external cause status; D64.9 Anemia, unspecified
CPT/HCPCS: 36415; 70450; 71045; 72220; 76770; 80048; 80053; 81001; 82550; 82962; 83605; 83735; 83880; 84100; 84484; 85007; 85025; 87040; 87426; 93005; 96361; 96374; J0456; J0696; J1650; J7030; J7050; U0003; U0005; 97116-GP; 99285-25; G0378

== ENCOUNTER → 2022-02-22 | Day surgery (SDC) | payer MEDICARE ==
[~2022-02-22] VITALS: Ht 170.2 cm; Wt 78.6 kg
[~2022-02-22] MED LIST changes: +ATOR20TA58 PO; +AZIT250T PO; +DEXA4TAB PO; +IV RINGERS,LACTATED 1000ML 1,000 ML IV SCH; +LIDOCAINE 2% PF 5 ML VIAL. ONE; +OMEP40CA7 PO; +PROPOFOL 10 MG/ML (20ML) VIAL. IV ONE
[2022-02-22 07:18] VITALS: BP 139/87
[2022-02-22 08:35] VITALS: BP 129/74
== END | disposition home or self-care (01) ==
LOC: ENDOS 06:42
PROVIDERS: ATTEND Internal Medicine Gastroenterology
DX: R13.10 Dysphagia, unspecified (principal); K44.9 Diaphragmatic hernia without obstruction or gangrene; K31.89 Other diseases of stomach and duodenum; K21.9 Gastro-esophageal reflux disease without esophagitis; I10 Essential (primary) hypertension; E78.00 Pure hypercholesterolemia, unspecified; M19.90 Unspecified osteoarthritis, unspecified site; E03.9 Hypothyroidism, unspecified; F17.210 Nicotine dependence, cigarettes, uncomplicated; Z79.899 Other long term (current) drug therapy; Z98.890 Other specified postprocedural states; Z90.49 Acquired absence of other specified parts of digestive tract; Z88.8 Allergy status to other drugs, medicaments and biological substances
CPT/HCPCS: 43235; 43450; J2704